=== PATIENT | male | born 1960 | race Caucasian/White ===

== ENCOUNTER 2018-06-08 01:04 | Outpatient (CLI) | payer BC, SELFPAY ==
--- NOTE | 2018-06-08 12:53 | DI.RAD_ITS ---
SYMPTOMS/DIAGNOSIS: CHRONIC PREDNISONE USE, Z79.52, LONG-TERM (CURRENT) USE OF SYSTEMIC STEROIDS DEXA SCAN: The scanogram is unremarkable. For the left hip, a T score of -0.9 and a Z score of -0.4 are consistent with osteopenia and an increased fracture risk. For the lumbar spine, a T score of -1.1 and a Z score of -0.4 are also consistent with osteopenia and an increased fracture risk. For the right forearm, a T score of -0.1 and a Z score of 0.6 are within the normal range.
== END 2018-06-08 01:24 ==
PROVIDERS: PCP Nurse Practitioner; Visit Provider Nurse Practitioner
DX: M85.88 Other specified disorders of bone density and structure, other site (principal); Z79.52 Long term (current) use of systemic steroids
CPT/HCPCS: 77080

== ENCOUNTER 2019-10-20 07:22 | Outpatient (CLI) | payer BC, SELFPAY ==
[2019-10-21 17:28] LABS: COVID-19 RT-PCR Result NEGATIVE (Negative)
== END 2019-10-20 07:42 ==
PROVIDERS: PCP Nurse Practitioner; Visit Provider Surgery
DX: Z01.818 Encounter for other preprocedural examination (principal)
CPT/HCPCS: U0003

== ENCOUNTER 2019-10-24 08:00 | Day surgery (SDC) | payer BC, SELFPAY ==
[2019-10-24] VITALS (10 sets, daily range): BP systolic 115–165; BP diastolic 69–90; PULSE 51–68; RESP 10–25; TEMP 36.1–36.6; O2SAT 95–98
--- NOTE | 2019-10-24 06:39 | ROE_ITS ---
Date of service: 10/24/19 Time of Service: 11:18 Operative Note Operative Note DATE OF PROCEDURE: 10/24/19 PRE-OP DIAGNOSIS: Right inguinal hernia and Umbilical hernia POST-OP DIAGNOSIS: other (Direct and indirect right inguinal hernia and umbilical hernia) PROCEDURE: 1. Right inguinal hernia repair with mesh 2. Umbilical hernia repair SURGEON: Allyson Henson ORNAMENTAL IRONWORKER HELPER: Beatrice Mota ANESTHESIA: GETA (ASA 2/ Valery Chan CRNA) and regional (TAP block and Bilateral rectus block) PATHOLOGY: none sent COMPLICATIONS: None Patient was transported to: PACU Patient's condition: stable Implants: 1. Ventralex ST Hernia Patch. REF [id number]/ LOT [id number]/ EXP 2021-05-18 2. PERFIX Light Plug. REF [id number]/ LOT [id number]/ EXP 2023-11-16 3. PerFix Light Plug. REF [id number]/ LOT [id number]/ 2023-08-16 Indications: 58 year old gentleman with COPD who comes into the office with a 7- month history of a small bulge in the right inguinal area. It is mildly tender uncomfortable. On exam he does have a small right inguinal hernia as well as an umbilical hernia that is partially reducible today in the office. It is not tender. Suspect a piece of omentum in the defect P\\ Right inguinal hernia repair with mesh and umbilical hernia repair TAP block and Bilateral rectus block Risks, benefits and complications have been reviewed. Complications include but are not limited to bleeding, pain, infection, injury to underlying structures like bowel and adverse reaction to the medication. Questions were entertained and answered to their satisfaction and they wished to proceed. No guarantees were given or implied. Procedure Description: After informed concent was obtained the patient was taken to the operating room and placed in a supine position. Monitors and SCDs were applied and a timeout was done. The patient's name, date of , procedure type, procedure site, allergies to medications, preoperative antibiotic, and DVT prophylaxis were all reviewed. Fire risk was assessed. Next anesthesia did a tap block on the right side under ultrasound guidance as well as a bilateral rectus block. Please see their separate dictation. Once anesthesia was done the abdomen was prepped and draped in a sterile surgical fashion. 1% lidocaine was injected into the dermis just under the umbilicus. An incision was made with a 10 blade under the umbilicus. Dissection was done with cautery through the subcutaneous tissues and through the umbilical stalk down to the fascia. The hernia defect was identified and measured 2 cm. The hernia sac was opened and The omentum was identified. I attempted to push the omentum back into the abdominal cavity without success. A portion of the omentum was resected using cautery. The rest of the omentum was then gently pushed back into the abdominal cavity. The peritoneum was swept for adhesions. No adhesions were noted. A 3.2 inch round mesh was then placed under the peritoneum and secured in 4 quarters with 2-0 Proline. Once the mesh was secured the tissues were irrigated with some normal saline. No bleeding was identified. The fascia was closed over the mesh with 0 vicryl running suture. 2-0 Vicryl was used to secure the umbilicus down to the fascia. The subcutaneous tissue was re-approximated with 3-0 vicryl. The dermis was re-approximated with a running 4-0 Vicryl. Next 1% lidocaine was injected into the dermis in the right lower quadrant. An incision was made with a 10 blade in the right lower quadrant. Dissection was done with cautery through the subcutaneous tissues and Ban's fascia down to the external oblique fascia. The external ring was identified and the external oblique fascia was opened sharply through the external ring. The cut fascia was grasped with hemostats and the cord structures were identified and a Martine drain was placed around them. The cremasteric muscle was dissected away from the cord structures using both cautery and blunt dissection. There was no mesh identified from a prior repair. A hernia sac was identified and removed from the cord structures using blunt dissection. The hernia sac was suture ligated and amputated. The remnant was pushed back into the peritoneum. A large direct hernia was also identified. A Extra large plug was sutured into place at the internal ring with 2-0 proline. The flat mesh was attached to the arcuate ligament using a 2-0 Prolene double armed suture. The mesh was secured laterally and medially with a 2-0 Prolene, with a running suture. The tails of the mesh were wrapped around the cord structures effectively cinching down the internal ring. Once the mesh was secured the tissues were irrigated with some normal saline. No bleeding was identified. I then inspected the mesh and found that there was an opening next to the arcuate ligament. A large plug was placed into that medial defect and secured with 2-0 proline. The external oblique fascia was re-approximated using 2-0 Vicryl running suture. The Ban's fascia was re-approximated using interrupted 3-0 Vicryl. The dermis was re-approximat ed with a running 4-0 Vicryl. The skin was cleaned and dried and skin affix was applied to both incisions. The patient was woken up and taken back to recovery in stable condition. There were no immediate complications. Sponge, instrument and needle counts were correct at the end of the case x2.
--- NOTE | 2019-10-24 06:42 | W.PM.DSUDISC ---
Discharge Plan Disposition Patient Disposition: HOME Condition: Good Discharge Details Reason For Visit: Right inguinal hernia and umbilical hernia Attending Provider: Allyson Henson Primary Care Provider: Alison Ornelas Home Meds and New Rx's Prescriptions: New ibuprofen 600 mg tablet 600 mg PO Q6H PRNQty: 60 RF: 0 acetaminophen [Tylenol] 325 mg tablet 650 mg PO Q6H PRN (Reason: pain) Qty: 30 RF: 0 Continued fexofenadine 180 mg tablet 180 mg PO DAILY PRN (Reason: environmental allergies) Qty: 30 RF: 12 prednisone 20 mg tablet See Rx Instructions PO DAILY RF: 0 (DME) Compact Compressor Nebulizer 1 EACH kit 1 ea Miscellaneous PRN Qty: 1 RF: 0 Dulera 200-5 mcg/actuation HFA aerosol inhaler 2 puff IH BID Qty: 1 RF: 12 ipratropium-albuterol 0.5 mg-3 mg(2.5 mg base)/3 mL solution for nebulization 3 ml IH QID PRN (Reason: copd) Qty: 120 RF: 12 albuterol sulfate 90 mcg/actuation HFA aerosol inhaler 2 puff IH Q4H PRN Qty: 1 RF: 12 fluticasone propionate 50 mcg/actuation spray,suspension 100 mcg NS DAILY Qty: 1 RF: 12 Discharge Instructions Instructions: Inguinal Hernia Repair (DC), Umbilical Hernia Repair (DC) Additional Instructions: Activity at Home after surgery: 1. Make sure you walk outside at least 4 times per day 2. You should be able to climb a flight of stairs 3. No driving while in pain or taking pain medications 4. No strenuous activity or heavy lifting for 4 weeks (open surgery) Diet, Nutrition, & wound healin. Avoid alcohol until after you are recovered from your surgery 2. Make sure to eat plenty of lean protein (meat, fish, eggs, cottage cheese, beans) 3. Eat a variety of fruits and vegetables. Eat plenty of high fiber foods to avoid constipation. 4. Drink plenty of liquids to stay hydrated and avoid constipation Pain Medications: 1. Tylenol 650 mg every 6 hours as needed and Ibuprofen 600 mg every 6 hours as needed. May alternate between the two medicines every 3 hours 2. If a narcotic has been prescribed take as directed only for breakthrough pain For Constipation: 1. Take Milk of Magnesia or MiraLax as needed for constipation Other: 1. You may shower daily. Do not scrub the incisions 2. Do not soak the incisions for 1 week 3. You may alternate ice and heat as needed for pain and swelling Wound Care: 1. Keep the incisions clean and dry Please call our office if you develop: 1. Fevers >101.5 2. Nausea or Vomiting 3. Worsening pain 4. Redness and thick discharge from the wounds If after hours please call the Hospital at and ask to speak to the on-call surgeon Referrals: Allyson Henson MD [ [facility] STAFF PHYSICIAN] - 11/06/19 10:30 am Activity:: No lifting >20 lb for 4 weeks Remove Dressings/Wound Care:: 24 hours Shower/Bathe:: 24 hours Diet:: As Tolerated Discharge Orders Discharge Orders: Discharge Order (Routine); Ordered 10/24/19 Ordered By: Allyson Henson
[2019-10-24] MEDS: Lactated Ringers 1,000 ML 80 ML IV (09:00)
[2019-10-24] MEDS: Hydrocortisone SOD SUC. 100 MG VIAL IV (10:00)
[2019-10-24] MEDS: ceFAZolin 2 GM/50 ML BAG IVPB (10:35)
[2019-10-24] MEDS: Bupivacaine LIPOSOME/PF 133 MG/10 ML VIAL IJ (10:44)
[2019-10-24] MEDS: Bupivacaine 0.25% Pres-Free 30 ML VIAL (10:44)
[2019-10-24] MEDS: Lidocaine 1% Multi-Dose 50 ML VIAL (10:49)
[2019-10-24] MEDS: fentaNYL 100 MCG/2 ML VIAL IVP ×2 (13:12→13:20)
[2019-10-24] MEDS: HYDROmorphone 2 MG/ML VIAL IVP (13:52)
[2019-10-24] MEDS: oxyCODONE 5 MG TAB PO (14:17)
== END 2019-10-24 15:37 | disposition home or self-care (01) ==
PROVIDERS: PCP Nurse Practitioner; Visit Provider Surgery
PROC: (CPT 49505; principal; 2019-10-24 09:45)
PROC: (CPT 49505; 2019-10-24 09:45)
DX: K40.90 Unilateral inguinal hernia, without obstruction or gangrene, not specified as recurrent (principal); K42.9 Umbilical hernia without obstruction or gangrene; G89.18 Other acute postprocedural pain; J44.9 Chronic obstructive pulmonary disease, unspecified
CPT/HCPCS: 49505; 49585; 76942; C1781; J0131; J0690; J1720; J1885; J2405; J3010

== ENCOUNTER 2021-01-28 05:16 | Observation (INO) | payer BC, SELFPAY ==
[2021-01-28] VITALS (40 sets, daily range): BP systolic 106–148; BP diastolic 64–89; PULSE 55–70; RESP 12–20; TEMP 36.2–36.9; O2SAT 90–99; BMI 28.0
--- NOTE | 2021-01-28 05:15 | DI.CT_ITS ---
Exam(s) CT ABDOMEN PELVIS W EXAM: CT ABDOMEN PELVIS W CLINICAL HISTORY: rlq inguinal hernia pain, r/o incarc/minerva. TECHNIQUE: Imaging Protocol: Axial computed tomography images with coronal and sagittal reformatted images were created and reviewed CONTRAST MATERIAL: Intravenous: Omnipaque 100cc Oral: None COMPARISON: No exams were available for comparison FINDINGS: VISUALIZED LUNG BASES: No nodules nor pleural effusions evident. ABDOMEN: There is no ascites. LIVER: There are no focal hepatic lesions evident . GALLBLADDER/BILIARY: No obvious gallbladder pathology. CBD is not dilated. PANCREAS: No evidence of pancreatic mass nor dilatation of the pancreatic duct. SPLEEN: Spleen is not enlarged. No obvious intrasplenic lesions. Splenic and portal veins are paten t. ADRENALS: There are no significant adrenal masses. KIDNEYS:No cysts evident. No solid renal masses. No calculi nor hydronephrosis.. ABDOMINAL AORTA: Abdominal aorta is not enlarged. LYMPH NODES:There is no retroperitoneal nor paraaortic adenopathy. ABDOMINAL WALL: There is a right-sided inguinal hernia which contains fluid but no bowel loops therei n. GI: There is no evidence of diverticular disease. However, in the central-slightly right of center p timothy just above the urinary bladder there is segmental circumferential thickening of a small bowel l oop with surrounding mesenteric edema. Consistent segmental enteritis, possibly ischemic or inflamma tory. This abnormal bowel loop measures approximately 8 cm length. PELVIS: GI: No evidence of appendicitis.No evidence of sigmoid diverticulitis. LYMPH NODES: There is no intrapelvic nor inguinal adenopathy. REPRODUCTIVE: Prostate mildly enlarged. Seminal vesicles unremarkable. URINARY BLADDER: No calculi nor obvious masses evident OSSEOUS: No significant osseous lesions. IMPRESSION: 1. The main finding here is abnormal segmental circumference thickening/edema of a small-bowel loop j ust above the urinary bladder, this measuring approximately 8 cm length and exhibiting surrounding me senteric edema. This is either related to short segmental enteritis due to ischemia or infection/inf lammatory. 2. There is an inguinal hernia on the right side which contains fluid within the inguinal canal but n o bowel loops therein. There is no bowel obstruction. RADIATION DOSE DELIVERED: 854.23mGy.cm Total DLP DATA REPOSITORY: All CT scans at this facility are submitted to the National Radiology Data Registry (NRDR) Dose Index Registry (DIR) with the [employer] (ACR). RADIATION OPTIMIZATION: All CT scans at this facility use at least one of these dose optimization te chniques: automated exposure control; mA and/or kV adjustment per patient size (includes targeted exa ms where dose is matched to clinical indication); or iterative reconstruction.
--- NOTE | 2021-01-28 05:28 | W.ED.GENAD ---
Discharge Plan Disposition Patient Disposition: [facility] INPATIENT Condition: Good Discharge Details Chief Complaint: Abd Prob Clinical Impression: Recurrent right inguinal hernia Admit Date/Time: 01/28/21 08:13 Admit Provider: Allyson Henson Attending Provider: Allyson Henson Primary Care Provider: Alison Ornelas ED Provider: Hilary Beckham Discharge Instructions Activity:: see above Equipment/Supplies:: No Equipment Needed Diet:: As Tolerated Discharge Orders Discharge Orders: Discharge Order (Routine); Ordered 01/29/21 Ordered By: Rafia Clayton Discharge Data Discharge Date/Time-TO BE ENTERED AT DEPARTURE: 01/28/21 09:05 Medical Decision Making <Justice Coulter DO - Last Filed: 01/28/21 07:48> 60-year-old male with a past medical history of an umbilical hernia that was surgically repaired, as well as a right-sided inguinal hernia that was surgically repaired in 2020 the month of October Dr. Henson. Patient presents today here for right groin/right lower quadrant pain. Patient states that starting at night p.o. past evening he developed notable right lower quadrant/right groin pain. He had a few episodes of vomiting but no diarrhea. Describes the pain as achy. He denies any epigastric pain or chest pain. He denies any significant genital pain or dysuria. He does admit to feeling a hard nodule for the last day or 2 with his right groin which he otherwise feels is new. He denies any significant straining. He denies any trauma. His last p.o. intake/meal per patient was at 3 PM. No other complaints today. Notable point factors. Exam demonstrates tenderness in the right lower quadrant, in conjunction with a tender nodular cylinder shaped the right groin at the inguinal canal, which may be scarring or atypical component of the hernia. There is also some swelling in the suprapubic region on the right-hand side suggestive of a mild fluid-filled hernia. This area is palpable and tender but does not appear to include physically at this time a large strangulated or incarcerated hernia. I do feel that CT imaging is indicated for further evaluation and characterization of the area. We will treat the patient's pain, rehydrate, monitor closely and reassess. Differential at this time includes appendicitis versus hernia with incarceration or strangulation. FINDINGS: Liver: Normal. No mass. Gallbladder and bile ducts: Normal. No calcified stones. No ductal dilation. Pancreas: Normal. No ductal dilation. Spleen: Normal. No splenomegaly. Adrenal glands: Normal. No mass. Kidneys and ureters: Normal. No hydronephrosis. Stomach and bowel: Segmental thickening of a loop of small bowel demonstrating a targetoid appearance in the upper pelvis. Mesenteric edema/congestion is noted. The findings are compatible with a short segmental enteritis, potentially ischemic, inflammatory or infectious. Appendix: No evidence of appendicitis. Intraperitoneal space: See Stomach and bowel finding. Vasculature: Unremarkable. No abdominal aortic aneurysm. Lymph nodes: Unremarkable. No enlarged lymph nodes. Urinary bladder: Unremarkable as visualized. Reproductive: Unremarkable as visualized. Bones/joints: Unremarkable. No acute fracture. Soft tissues: Patient status post ventral herniorrhaphy. Right-sided inguinal hernia contains a small amount of fluid but no bowel. IMPRESSION: 1. Segmental thickening of a loop of small bowel demonstrating a targetoid appearance in the upper pelvis. Mesenteric edema/congestion is noted. The findings are compatible with a short segmental enteritis, potentially ischemic, inflammatory or infectious. 2. Right-sided inguinal hernia contains a small amount of fluid but no bowel. Thank you for allowing us to participate in the care of your patient. Dictated and Authenticated by: Cruz Mancilla MD 01/28/2021 7:27 AM Eastern Time ([place] & [place]) <Hilary Beckham MD - Last Filed: 02/04/21 14:00> Patient signed out to me at time of shift change with discussion with surgery pending, discussed Pt with Dr. Henson of surgery, who will admit. HPI <Justice Coulter DO - Last Filed: 01/28/21 07:48> General Date/Time Provider Initiated Documentation: 01/28/21 05:17. HPI Narrative: 60-year-old male with a past medical history of an umbilical hernia that was surgically repaired, as well as a right-sided inguinal hernia that was surgically repaired in 2019 the month of October Dr[address] Henson. Patient presents today here for right groin/right lower quadrant pain. Patient states that starting at night p.o. past evening he developed notable right lower quadrant/right groin pain. He had a few episodes of vomiting but no diarrhea. Describes the pain as achy. He denies any epigastric pain or chest pain. He denies any significant genital pain or dysuria. He does admit to feeling a hard nodule for the last day or 2 with his right groin which he otherwise feels is new. He denies any significant straining. He denies any trauma. His last p.o. intake/meal per patient was at 3 PM. No other complaints today. Notable point factors. Related Data Home Medications Medication Instructions Recorded Confirmed fexofenadine 180 mg tablet 180 mg PO DAILY PRN #30 tab-cap 03/01/18 01/28/21 acetaminophen [Tylenol] 650 mg PO Q6H PRN #30 tab 10/24/19 01/28/21 ibuprofen 600 mg PO Q6H PRN #60 tab 10/24/19 01/28/21 nebulizer accessories #1 ea 07/28/20 11/27/20 nebulizers #1 kit 07/28/20 11/27/20 fluticasone 500 mcg-salmeterol 50 1 inh INHALATION BID #60 ea 07/29/20 01/28/21 mcg/dose blistr powdr for inhalation albuterol sulfate 90 mcg/actuation 2 puff IH Q4H PRN #1 unit 11/25/20 01/28/21 aerosol inhaler ipratropium 0.5 mg-albuterol 3 mg 3 ml IH QID PRN #120 vial 11/25/20 01/28/21 (2.5 mg base)/3 mL nebulization soln fluticasone propionate 50 2 spray INTRANASAL DAILY 90 Days 11/27/20 01/28/21 mcg/actuation nasal #48 g spray,suspension fluticasone propionate 50 2 spray INTRANASAL DAILY PRN ml 11/27/20 01/28/21 mcg/actuation nasal spray,suspension montelukast 10 mg tablet 10 mg PO DAILY #90 tab 11/27/20 01/28/21 tramadol 50 mg PO Q6H PRN #10 tab 01/29/21 Previous Rx's Medication Instructions Recorded fexofenadine 180 mg tablet 180 mg PO DAILY PRN #30 tab-cap 03/01/18 acetaminophen [Tylenol] 650 mg PO Q6H PRN #30 tab 10/24/19 ibuprofen 600 mg PO Q6H PRN #60 tab 10/24/19 nebulizer accessories #1 ea 07/28/20 nebulizers #1 kit 07/28/20 fluticasone 500 mcg-salmeterol 50 1 inh INHALATION BID #60 ea 07/29/20 mcg/dose blistr powdr for inhalation albuterol sulfate 90 mcg/actuation 2 puff IH Q4H PRN #1 unit 11/25/20 aerosol inhaler ipratropium 0.5 mg-albuterol 3 mg 3 ml IH QID PRN #120 vial 11/25/20 (2.5 mg base)/3 mL nebulization soln fluticasone propionate 50 2 spray INTRANASAL DAILY 90 Days 11/27/20 mcg/actuation nasal #48 g spray,suspension montelukast 10 mg tablet 10 mg PO DAILY #90 tab 11/27/20 tramadol 50 mg PO Q6H PRN #10 tab 01/29/21 Allergies Allergy/AdvReac Type Severity Reaction Status Date / Time No Known Drug Allergies Allergy Unknown Verified 01/28/21 05:29 Review of Systems <Justice Coulter DO - Last Filed: 01/28/21 07:48> All systems reviewed & are unremarkable except as noted in HPI and below PFSH <Justice Coulter DO - Last Filed: 01/28/21 07:48> Medical History Asthma Chronic obstructive lung disease (09/01/12) Colon cancer screening declined Elevated blood pressure reading (08/03/16) Failure to attend screening for abdominal aortic aneurysm (AAA) Lung cancer screening declined by patient Polyp, nasal Right inguinal hernia Umbilical hernia Unspecified asthma (03/20/86) SINCE 02/1986; DUST & FUMES & WEATHER CHANGE; MODERATE PERSISTENT; SEVERE COPD BUT RESPONSIVE; FEV1 1.88 Dr Hodges 09/2013 Surgical History History of tonsillectomy and adenoidectomy History of umbilical hernia repair (~10/24/19) Hx of inguinal hernia surgery Hx of nasal polypectomy S/P right inguinal hernia repair (~10/24/19) Social History Smoking/Tobacco Use Status: Former Tobacco Use Quit Date: 03/21/09 Smoking risk assessment performed?: Yes Alcohol Intake: current Alcohol Intake frequency: a few times a month Alcohol type: beer Substance use type: former substance user Details: alcohol: pt. reports he drinks on saturdays and usually three beers. last alcohol t-5. Marijuana is used with vaporizing, only on saturdays. Last marijuana t-5. Housing: apartment Current gender identity: male What type of physical activity do you participate in: none Seatbelt use: always Drive intox or ride w/intox drop hammer pile driver operator: No Water heater temp set <120 deg: Yes Working smoke detector in home: Yes Fire extinguisher in home: Yes Carbon monox detector in home: Yes Do you feel safe at home: Yes Do you feel safe in your relationship?: Yes Exam <Justice Coulter DO - Last Filed: 01/28/21 07:48> Narrative Exam Narrative: 1.Const: Well-nourished, Well-developed, appearing stated age 2.Eyes: PERRL, no conjunctival injection, and symmetrical lids. 3.ENT: Atraumatic external nose and ears. Moist MM. Neck: Symmetric, trachea midline, No thyromegaly. 4.CVS: +S1/S2, No murmurs or gallops. Peripheral pulses 2+ and equal in all extremities. Brisk capillary refill in all extremities. 5.RESP: Unlabored respiratory effort. Clear to auscultation bilaterally. No wheezes rales or rhonchi 6.GI: Soft, nondistended, testicles demonstrate no significant testicular or scrotal penile tenderness. Right groin demonstrates small swelling in the right suprapubic region, mild tenderness. Does not appear to be ventral hernia for the swelling. Proximal to this is a firm palpable somewhat linear cylindrical somewhat nodular mass. This may be. Scarring or a firm hernia. Difficult to tell if it on palpation. Is relatively small and isolated. Minimal pain in the right lower quadrant of the abdomen. 7.MSK: Normocephalic/Atraumatic, Extremities w/o deformity or ttp No cyanosis or clubbing, Normal movement of all extremities 8.Skin: Warm, Dry. No rashes or lesions. 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 Sensation grossly intact, no focal neurologic deficits. 10.Psych: (AAO) x3. Appropriate mood and affect Sign Out <Justice Coulter DO - Last Filed: 01/28/21 07:48> Sign Out Data: Sign Out Comment: Right lower quadrant abdominal pain, pending assessment/consultation from surgery. CT scan shows evidence of inflammation of the small bowel, mesenteric edema. Last updated by Justice Coulter DO at 01/28/21 07:49
[2021-01-28 05:41] LABS: Absolute Basophil Count 0.08 10^3/uL (0.0-0.2); Absolute Monocyte Count 1.25 10^3/uL (0.1-0.8); Basophils % 0.5; Eosinophils % 0.7; HGB 14.7 g/dL (13.5-17.5); Immature Grans % 1.2; Lactate 1.9 mmol/L (0.6-1.4); Lymphocytes % 14.6; MCH 31.3 pg (27.0-33.0); MCHC 32.7 % (32.0-36.0); MCV 95.7 fL (80-95); MPV 9.7 fL (8.0-11.0); Monocytes % 7.5; Neutrophils % 75.5; Nucleated RBC 0 %; Platelet Count 293 10^3/uL (130-400); RDW 13.4 % (11.8-14.1); RDW-SD 48.1 fL; WBC 16.73 10^3/uL (4.4-10.8)
[2021-01-28] MEDS: Normal Saline 1,000 ML 1000 ML IV (05:46)
[2021-01-28 05:57] LABS: Absolute Eosinophil Count 0.12 10^3/uL (0.0-0.7); Absolute Lymphocyte Count 2.44 10^3/uL (1.2-3.4); Absolute Neutrophil Count 12.63 10^3/uL (1.2-6.7)
[2021-01-28 06:00] LABS: Source Nasal/Nares
[2021-01-28 06:18] LABS: Albumin 4.1 g/dL (3.4-5.0); Alkaline Phosphatase 110 U/L (46-116); Anion Gap 8.1 mmol/L (3-11); BUN 12 mg/dL (7-18); Bilirubin, Total 0.4 mg/dL (0.2-1.0); CO2 30.9 mmol/L (21.0-32.0); Calcium 9.6 mg/dL (8.5-10.1); Chloride 102 mmol/L (98-107); Glucose 129 mg/dL (74-106); Potassium 4.4 mmol/L (3.5-5.1); Sodium 141 mmol/L (136-145); Total Protein 7.4 g/dL (6.4-8.2)
[2021-01-28 06:19] LABS: ALT 27 U/L (16-63); AST 14 U/L (15-37); Lipase 80 U/L (73-393)
[2021-01-28 06:51] LABS: COVID-19 PCR Negative (Negative)
[2021-01-28] MEDS: Omnipaque 350 MG/ML 100 ML BTL IJ (07:25)
[2021-01-28] MEDS: Normal Saline - Diluent 50 ML VIAL IV (07:26)
[2021-01-28] MEDS: Normal Saline Flush 10 ML SYR IVP ×7 (07:27→23:41)
--- NOTE | 2021-01-28 07:28 | DI.VRAD_ITS ---
PROCEDURE INFORMATION: Exam: CT Abdomen And Pelvis With Contrast Exam date and time: 01/28/2021 5:27 AM Age: 60 years old Clinical indication: Other: Rlq inguinal hernia pain, R/O incarc/minerva; Prior surgery; Surgery date: 6+ months; Surgery type: S/P 2 hernia repair TECHNIQUE: Imaging protocol: Computed tomography of the abdomen and pelvis with contrast. Radiation optimization: All CT scans at this facility use at least one of these dose optimization techniques: automated exposure control; mA and/or kV adjustment per patient size (includes targeted exams where dose is matched to clinical indication); or iterative reconstruction. Contrast material: OMNIPAQUE 350; Contrast volume: 100 ml; Contrast route: INTRAVENOUS (IV); COMPARISON: No relevant prior studies available. FINDINGS: Liver: Normal. No mass. Gallbladder and bile ducts: Normal. No calcified stones. No ductal dilation. Pancreas: Normal. No ductal dilation. Spleen: Normal. No splenomegaly. Adrenal glands: Normal. No mass. Kidneys and ureters: Normal. No hydronephrosis. Stomach and bowel: Segmental thickening of a loop of small bowel demonstrating a targetoid appearance in the upper pelvis. Mesenteric edema/congestion is noted. The findings are compatible with a short segmental enteritis, potentially ischemic, inflammatory or infectious. Appendix: No evidence of appendicitis. Intraperitoneal space: See Stomach and bowel finding. Vasculature: Unremarkable. No abdominal aortic aneurysm. Lymph nodes: Unremarkable. No enlarged lymph nodes. Urinary bladder: Unremarkable as visualized. Reproductive: Unremarkable as visualized. Bones/joints: Unremarkable. No acute fracture. Soft tissues: Patient status post ventral herniorrhaphy. Right-sided inguinal hernia contains a small amount of fluid but no bowel. IMPRESSION: 1. Segmental thickening of a loop of small bowel demonstrating a targetoid appearance in the upper pelvis. Mesenteric edema/congestion is noted. The findings are compatible with a short segmental enteritis, potentially ischemic, inflammatory or infectious. 2. Right-sided inguinal hernia contains a small amount of fluid but no bowel. Dictated and Authenticated by: Cruz Mancilla MD. Ordering:ARNOLD Rendon MD
[2021-01-28 08:11] LABS: Clarity Clear (Clear); Glucose Negative (Negative); Leukocyte Esterase Negative (Negative); Nitrite Negative (Negative); Specific Gravity 1.025 (1.005-1.025)
[2021-01-28 08:12] LABS: Bacteria Negative HPF (Negative); Bilirubin Negative (Negative); Blood Trace-intact (Negative); C & S Indicated? No; Casts Negative LPF (Negative); Crystals Negative HPF (Negative); Epithelial Cells Negative HPF (Negative); Ketones Trace mg/dL (Negative); Mucus Negative (Negative); Urobilinogen 0.2 EU/dL (Up TO 0.2); WBC 0-2 HPF (0-5)
--- NOTE | 2021-01-28 08:51 | HPE_ITS ---
Date of service: 01/28/21 Time of Service: 08:52 Assessment and Plan Assessment and plan (1) Abdominal pain: Status: Acute Assessment and plan: 60 y/o male presented to the ER via [place] secondary to severe abdominal pain. WBC and Lactate elevated. Patient's complaints of abdominal pain and right groin bulge have resolved since admission to the ER. Will admit to Med/surg for observation. Recheck labs around noon to trend values. DIET- NPO PAIN- Tylenol and Dilaudid ordered PRN IV Fluids Zosyn secondary to elevated WBC Activity as tolerated Discussed with the patient that he will be admitted to med/surg for further observation and continued evaluation. Questions were answered to patient's satisfaction. (2) Asthma: Status: Chronic (3) Chronic obstructive lung disease: Status: Chronic Qualifiers: COPD type: unspecified COPD Qualified Code(s): J44.9 - Chronic obstructive pulmonary disease, unspecified History of Present Illness History of Present Illness Chief Complaint: Abdominal Pain Narrative: 60 y/o male with a history of asthma, COPD, hearing loss presented to the ER with complaints of severe abdominal pain. The patient reports this abdominal pain began last night 01/27 at 9pm and continued through the evening. His abdominal pain is located across the waist band region, also of note he reports that he has a recurrence of his right inguinal hernia. S/P [facility] recurrence repair on 10/2019. This area was bulging, hard and painful. He states this has significantly improved since his arrival to the ER. Denies chest pain, palpitations, dyspnea or dyspnea with exertion. Denies personal or family history of adverse reactions to anesthesia. Denies any history of ND, stroke, seizures, bleeding or clotting disorders. Denies any history of chemotherapy or radiation. Patient reports occasional use of CBD and THC oil. Denies smoking tobacco or use of chewing tobacco or marijuana. Patient reports using ETOH on a monthly basis. Denies use of any other recreational or illegal drugs. [facility] Medical History Asthma Chronic obstructive lung disease (09/01/12) Colon cancer screening declined Elevated blood pressure reading (08/03/16) Failure to attend screening for abdominal aortic aneurysm (AAA) Lung cancer screening declined by patient Polyp, nasal Right inguinal hernia Umbilical hernia Unspecified asthma (03/20/86) SINCE 02/1986; DUST & FUMES & WEATHER CHANGE; MODERATE PERSISTENT; SEVERE COPD BUT RESPONSIVE; FEV1 1.88 Dr Hodges 09/2013 Surgical History History of tonsillectomy and adenoidectomy History of umbilical hernia repair (~10/24/19) Hx of inguinal hernia surgery Hx of nasal polypectomy S/P right inguinal hernia repair (~10/24/19) Social History Smoking/Tobacco Use Status: Former Tobacco Use Quit Date: 03/21/09 Smoking risk assessment performed?: Yes Alcohol Intake: current Alcohol Intake frequency: a few times a month Alcohol type: beer Substance use type: former substance user Details: alcohol: pt. reports he drinks on saturdays and usually three beers. last alcohol t-5. Marijuana is used with vaporizing, only on saturdays. Last marijuana t-5. Housing: apartment Current gender identity: male What type of physical activity do you participate in: none Seatbelt use: always Drive intox or ride w/intox garbage collector driver: No Water heater temp set <120 deg: Yes Working smoke detector in home: Yes Fire extinguisher in home: Yes Carbon monox detector in home: Yes Do you feel safe at home: Yes Do you feel safe in your relationship?: Yes Meds Allergies and Home Medications Allergies Allergy/AdvReac Type Severity Reaction Status Date / Time No Known Drug Allergies Allergy Unknown Verified 01/28/21 05:29 Home Medications Medication Instructions Recorded Confirmed Type fexofenadine 180 mg tablet 180 mg PO DAILY PRN #30 tab-cap 03/01/18 01/28/21 Rx acetaminophen [Tylenol] 650 mg PO Q6H PRN #30 tab 10/24/19 01/28/21 Rx ibuprofen 600 mg PO Q6H PRN #60 tab 10/24/19 01/28/21 Rx nebulizer accessories #1 ea 07/28/20 11/27/20 Rx nebulizers #1 kit 07/28/20 11/27/20 Rx fluticasone 500 mcg-salmeterol 50 1 inh INHALATION BID #60 ea 07/29/20 01/28/21 Rx mcg/dose blistr powdr for inhalation albuterol sulfate 90 mcg/actuation 2 puff IH Q4H PRN #1 unit 11/25/20 01/28/21 Rx aerosol inhaler ipratropium 0.5 mg-albuterol 3 mg 3 ml IH QID PRN #120 vial 11/25/20 01/28/21 Rx (2.5 mg base)/3 mL nebulization soln fluticasone propionate 50 2 spray INTRANASAL DAILY 90 Days 11/27/20 01/28/21 Rx mcg/actuation nasal #48 g spray,suspension fluticasone propionate 50 2 spray INTRANASAL DAILY PRN ml 11/27/20 01/28/21 History mcg/actuation nasal spray,suspension montelukast 10 mg tablet 10 mg PO DAILY #90 tab 11/27/20 01/28/21 Rx Exam Const General: cooperative, healthy appearing, comfortable and no acute distress Orientation: alert and oriented x3 Resp Effort & Inspection: normal respiratory effort, no audible wheezes and no cough GI Inspection: normal to inspection Palpation: soft, no guarding and nontender Other: Right groin region- No hernia noted on initial exam. No tenderness with palpation. (+) Recurrence of RIH. At this time the hernia appears to have reduced. Mild swelling in the Right groin area. No erythema. Results Labs Result diagrams: 01/28/21 05:35 01/28/21 05:35 Labs: Laboratory Results - last 24 hr 01/28/21 01/28/21 01/28/21 05:35 05:35 05:35 WBC 16.73 H RBC 4.70 Hgb 14.7 Hct 45.0 MCV 95.7 H MCH 31.3 MCHC 32.7 RDW 13.4 Plt Count 293 MPV 9.7 Immature Gran % 1.2 Neutrophils % 75.5 Lymphocytes % 14.6 Monocytes % 7.5 Eosinophils % 0.7 Basophils % 0.5 Nucleated RBC % 0 Absolute Neutrophils 12.63 H Absolute Lymphocytes 2.44 Absolute Monocytes 1.25 H Absolute Eosinophils 0.12 Absolute Basophils 0.08 VBG Lactate 1.9 H Sodium 141 Potassium 4.4 Chloride 102 Carbon Dioxide 30.9 Anion Gap 8.1 BUN 12 Creatinine 1.0 Estimated GFR/1.73 m2 >= 60.00 Glucose 129 H Calcium 9.6 Total Bilirubin 0.4 AST 14 L ALT 27 Alkaline Phosphatase 110 Total Protein 7.4 Albumin 4.1 Lipase 80 Urine Color Urine Clarity Urine pH Ur Specific [place] Urine Protein Urine Ketones Urine Blood Urine Nitrite Urine Bilirubin Urine Urobilinogen Ur Leukocyte Esterase Urine RBC Urine WBC Ur Epithelial Cells Urine Crystals Urine Bacteria Urine Casts Urine Mucus Ur Culture Indicated? Urine Glucose COVID-19 Source SARS-CoV-2 (PCR) 01/28/21 01/28/21 05:45 07:27 WBC RBC Hgb Hct MCV MCH MCHC RDW Plt Count MPV Immature Gran % Neutrophils % Lymphocytes % Monocytes % Eosinophils % Basophils % Nucleated RBC % Absolute Neutrophils Absolute Lymphocytes Absolute Monocytes Absolute Eosinophils Absolute Basophils VBG Lactate Sodium Potassium Chloride Carbon Dioxide Anion Gap BUN Creatinine Estimated GFR/1.73 m2 Glucose Calcium Total Bilirubin AST ALT Alkaline Phosphatase Total Protein Albumin Lipase Urine Color Yellow Urine Clarity Clear Urine pH 7.0 Ur Specific [place] 1.025 Urine Protein Negative Urine Ketones Trace Urine Blood Trace-intact H Urine Nitrite Negative Urine Bilirubin Negative Urine Urobilinogen 0.2 Ur Leukocyte Esterase Negative Urine RBC 3-5 H Urine WBC 0-2 Ur Epithelial Cells Negative Urine Crystals Negative Urine Bacteria Negative Urine Casts Negative Urine Mucus Negative Ur Culture Indicated? No Urine Glucose Negative COVID-19 Source Nasal/Nares SARS-CoV-2 (PCR) Negative Last Vital Signs Temp 36.9 C 01/28/21 05:19 Pulse 62 01/28/21 08:15 Resp 20 01/28/21 05:19 BP 141/83 H 01/28/21 08:15 Pulse Ox 93 01/28/21 08:20
[2021-01-28] MEDS: Lactated Ringers 1,000 ML 125 ML IV ×2 (09:23→15:00)
[2021-01-28] MEDS: ACETAMINOPHEN 1,000 MG/100 ML BTL 400 MG IVPB (09:24)
[2021-01-28] MEDS: Pantoprazole 40 MG VIAL IVP (09:26)
[2021-01-28] MEDS: Enoxaparin 40 MG/0.4 ML SYR SC (09:27)
[2021-01-28] MEDS: HYDROmorphone 2 MG/ML VIAL 1 MG IVP ×3 (10:41→23:37)
[2021-01-28] MEDS: Normal Saline 500 ML 30 ML IV (12:27)
[2021-01-28] MEDS: PIPERACILLIN/TAZO 3.375 GM in Normal Saline 50 ML IVPB ×3 (12:28→23:37)
[2021-01-28] MEDS: Ondansetron 4 MG/2 ML VIAL IVP (12:37)
[2021-01-28 12:41] LABS: Abs Immature Grans 0.17 10^3/uL (0.0-0.06); Absolute Eosinophil Count 0.29 10^3/uL (0.0-0.7); Absolute Lymphocyte Count 3.27 10^3/uL (1.2-3.4); Absolute Monocyte Count 1.13 10^3/uL (0.1-0.8); Absolute Neutrophil Count 8.81 10^3/uL (1.2-6.7); Basophils % 0.7; Eosinophils % 2.1; HCT 40.1 % (40.0-50.0); HGB 13.3 g/dL (13.5-17.5); Immature Grans % 1.2; Lymphocytes % 23.8; MCH 31.3 pg (27.0-33.0); MCHC 33.2 % (32.0-36.0); MCV 94.4 fL (80-95); MPV 9.6 fL (8.0-11.0); Monocytes % 8.2; Nucleated RBC 0 %; Platelet Count 279 10^3/uL (130-400); RBC 4.25 10^6/uL (4.36-5.78); RDW 13.6 % (11.8-14.1); RDW-SD 47.1 fL; WBC 13.76 10^3/uL (4.4-10.8)
--- NOTE | 2021-01-28 13:30 | W.ANESPRE ---
General Info Date of Service Date Performed: 01/28/21 Height: 5 ft 8 in Weight: 83.7 kg Body Mass Index (BMI): 28.0 Surgical Procedure: Operation Date: 01/28/21 14:10 Proposed Procedures Side Surgeon p Herniorrhaphy Inguinal/Femoral Right Allyson Henson MD Meds Allergies and Home Medications Allergies Allergy/AdvReac Type Severity Reaction Status Date / Time No Known Drug Allergies Allergy Unknown Verified 01/28/21 05:29 Home Medication Medication Instructions Recorded fexofenadine 180 mg tablet 180 mg PO DAILY PRN #30 tab-cap 03/01/18 acetaminophen [Tylenol] 650 mg PO Q6H PRN #30 tab 10/24/19 ibuprofen 600 mg PO Q6H PRN #60 tab 10/24/19 nebulizer accessories #1 ea 07/28/20 nebulizers #1 kit 07/28/20 fluticasone 500 mcg-salmeterol 50 1 inh INHALATION BID #60 ea 07/29/20 mcg/dose blistr powdr for inhalation albuterol sulfate 90 mcg/actuation 2 puff IH Q4H PRN #1 unit 11/25/20 aerosol inhaler ipratropium 0.5 mg-albuterol 3 mg 3 ml IH QID PRN #120 vial 11/25/20 (2.5 mg base)/3 mL nebulization soln fluticasone propionate 50 2 spray INTRANASAL DAILY 90 Days 11/27/20 mcg/actuation nasal #48 g spray,suspension fluticasone propionate 50 2 spray INTRANASAL DAILY PRN ml 11/27/20 mcg/actuation nasal spray,suspension montelukast 10 mg tablet 10 mg PO DAILY #90 tab 11/27/20 Current Visit Medications: Current Medications Generic Name Dose Route Start Last Admin Trade Name Freq PRN Reason Stop Dose Admin Enoxaparin Sodium 40 mg 01/28/21 10:00 01/28/21 09:27 Enoxaparin 40 Mg/0.4 Ml Syr SC 40 mg Q24H VELMA Administration Hydromorphone HCl 1 mg 01/28/21 08:44 01/28/21 10:41 Hydromorphone 2 Mg/Ml Vial IVP 1 mg Q2H PRN PRN Administration Pain Sodium Chloride 500 mls @ 0 mls/hr 01/28/21 08:13 01/28/21 12:27 Saline 500ml Bag IV 30 mls/hr PRN PRN Administration As Directed Ringer's Solution 1,000 mls @ 125 mls/hr 01/28/21 08:15 01/28/21 12:28 IV 0 mls/hr INFUSION VELMA Infusion Acetaminophen 1,000 mg in 100 mls @ 400 mls/hr 01/28/21 10:00 01/28/21 09:24 Ofirmev IVPB 400 mls/hr Q8H VELMA Administration Piperacillin Sod/Tazobactam 50 mls @ 100 mls/hr 01/28/21 12:00 01/28/21 12:28 Sod 3.375 gm/ Sodium Chloride IVPB 100 mls/hr Q6H VELMA Administration Protocol IV Miscellaneous Supplies 1 each 01/28/21 08:15 Iv Access IV DIRECTED VELMA Iohexol 100 ml 01/28/21 07:30 01/28/21 07:25 Omnipaque 350 Mg/Ml 100 Ml Btl IJ 02/27/21 23:59 100 ml DIRECTED VELMA Administration Ondansetron HCl 4 mg 01/28/21 08:13 01/28/21 12:37 Ondansetron 4 Mg/2 Ml Vial IVP 4 mg Q4H PRN PRN Administration Pantoprazole Sodium 40 mg 01/28/21 10:00 01/28/21 09:26 Pantoprazole 40 Mg Vial IVP 40 mg Q24H VELMA Administration Sodium Chloride 50 ml 01/28/21 07:30 01/28/21 07:26 Normal Saline - Diluent 50 Ml Vial IV 50 ml .FOR DI USE VELMA Administration Sodium Chloride 0 ml 01/28/21 07:27 01/28/21 12:37 Normal Saline Flush 10 Ml Syr IVP 10 ml PRN PRN Administration PFSH Active Problems Active Problems: Problem Status Onset Code Abdominal pain R10.9 Hearing loss H91.90 Nasal polyposis J33.9 Chronic obstructive lung disease 09/01/12 J44.9 Asthma Conductive hearing loss, 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 Polyp, nasal J33.9 Medical History Medical History Asthma Chronic obstructive lung disease (09/01/12) Colon cancer screening declined Elevated blood pressure reading (08/03/16) Failure to attend screening for abdominal aortic aneurysm (AAA) Lung cancer screening declined by patient Polyp, nasal Right inguinal hernia Umbilical hernia Unspecified asthma (03/20/86) SINCE 02/1986; DUST & FUMES & WEATHER CHANGE; MODERATE PERSISTENT; SEVERE COPD BUT RESPONSIVE; FEV1 1.88 Dr Hodges 09/2013 Surgical History Surgical History History of tonsillectomy and adenoidectomy History of umbilical hernia repair (~10/24/19) Hx of inguinal hernia surgery Hx of nasal polypectomy S/P right inguinal hernia repair (~10/24/19) Tobacco Smoking/Tobacco Use Status: Former Tobacco Use Alcohol Alcohol Intake: current Alcohol intake frequency: a few times a month Alcohol type: beer Substance Use Substance use type: former substance user Details: alcohol: pt. reports he drinks on saturdays and usually three beers. last alcohol t-5. Marijuana is used with vaporizing, only on saturdays. Last marijuana t-5. Vital Signs and Lab Results Vital Signs Most Recent Vital Signs in EMR: Most Recent Vital Signs Temp Pulse Resp BP Pulse Ox 36.7 C 65 18 129/81 97 01/28/21 09:46 01/28/21 09:46 01/28/21 09:46 01/28/21 09:46 01/28/21 09:46 Lab Results Result Diagrams: 01/28/21 12:33 01/28/21 05:35 Blood Type / Crossmatch: No Data to Display Complete Blood Count: White Blood Count 13.76 10^3/uL (4.4-10.8) H 01/28/21 12:33 01/28/21 Red Blood Count 4.25 10^6/uL (4.36-5.78) L 01/28/21 12:33 01/28/21 Hemoglobin 13.3 g/dL (13.5-17.5) L 01/28/21 12:33 01/28/21 Hematocrit 40.1 % (40.0-50.0) 01/28/21 12:33 01/28/21 Platelet Count 279 10^3/uL (130-400) 01/28/21 12:33 01/28/21 Venous Blood Lactate 1.0 mmol/L (0.6-1.4) 01/28/21 12:33 01/28/21 Complete Metabolic Panel: Sodium Level 141 mmol/L (136-145) 01/28/21 05:35 01/28/21 Potassium Level 4.4 mmol/L (3.5-5.1) 01/28/21 05:35 01/28/21 Chloride Level 102 mmol/L (98-107) 01/28/21 05:35 01/28/21 Carbon Dioxide Level 30.9 mmol/L (21.0-32.0) 01/28/21 05:35 01/28/21 Blood Urea Nitrogen 12 mg/dL (7-18) 01/28/21 05:35 01/28/21 Creatinine 1.0 mg/dL (0.70-1.30) 01/28/21 05:35 01/28/21 Estimated GFR/1.73 m2 >= 60.00 (mL/min/1.73m2) 01/28/21 05:35 01/28/21 Calcium Level 9.6 mg/dL (8.5-10.1) 01/28/21 05:35 01/28/21 Albumin 4.1 g/dL (3.4-5.0) 01/28/21 05:35 01/28/21 Glucose Level 129 mg/dL (74-106) H 01/28/21 05:35 01/28/21 Liver Function Panel: Alanine Aminotransferase (ALT/SGPT) 27 U/L (16-63) 01/28/21 05:35 01/28/21 Aspartate Amino Transf (AST/SGOT) 14 U/L (15-37) L 01/28/21 05:35 01/28/21 Coagulation Panel: No Data to Display Cardiac Panel: No Data to Display Arterial Blood Gas: No Data to Display Venous Blood Gas: No Data to Display Pancreas Panel: Lipase 80 U/L (73-393) 01/28/21 05:35 01/28/21 Thyroid Panel: No Data to Display Infectious Disease: Coronavirus (COVID-19)(PCR) Negative (Negative) 01/28/21 05:45 01/28/21 Coronavirus 2019 Source Nasal/Nares 01/28/21 05:45 01/28/21 Blood Cultures: No Data to Display Toxicology Panel: No Data to Display Anesthesia Assessment and Plan Anesthesia History Personal History: No History of Anesthesia Complications Family History: No Family History of Anesthesia Complications Exercise Tolerance Exercise Tolerance: Metabolic Equivalents>4 Pertinent Negatives Pertinent Negatives: No Symptoms of GERD (Symptoms earlier today, currently controlled on meds), No Major Cardiovascular Symptoms or Complaints, No Major Pulmonary Symptoms or Complaints (Albuterol inhaler daily) and No History of CVA/TIA Cardiac & Pulmonary Exam Cardiac Exam: Normal S1/S2 Heart Sounds Pulmonary Exam: Clear Bilateral Breath Sounds Implantable Cardiac Device Does patient have a Pacemaker or an ICD?: No Airway Exam Known Difficult Airway: No Mallampati Class: 2 Mouth Opening: Normal (> 3cm) Thyromental Distance: Greater than 3 cm Neck Range of Motion: Full ROM Neck Circumference: Normal Teeth Condition: Removable Dentures/Plates Lower and Edentulous ASA Classification ASA Score: ASA 2 Emergency Case?: No NPO Status NPO Status: NPO Clears >2 hours, Solids >8 hours Anesthesia Plan Resuscitation Status: Full Code Anesthesia Technique: General Anesthesia Airway Planned: Endotracheal Tube Pain Management: Surgeon and patient request nerve block Monitors Used: Standard Monitors Preoperative Comments:: 60 yo male for hernia repair. Came to ED via EMS with severe adnominal pain. Sig PMHx: Asthma/COPD (albut/ipatrop, recent pred taper 11/2020 40 mg for 5 days, then 20 mg for 7 days), nasal polyps, former smoker, occ EtOH, cannabis. Previous Anes: LMA 5,
[2021-01-28] MEDS: Bupivacaine LIPOSOME/PF 133 MG/10 ML VIAL IJ (14:46)
[2021-01-28] MEDS: Bupivacaine 0.25% Pres-Free 30 ML VIAL (14:46)
--- NOTE | 2021-01-28 15:01 | W.ANESNERVE ---
Nerve Block Single Injection Procedure Date and Time Date Performed: 01/28/21 Procedure Start: 14:32 Location Where Procedure Performed Procedure Location: Operating Room Procedure Stop: 14:40 Reason Performed: Postoperative Analgesia Requesting Provider: Allyson Henson Timeout Performed Timeout Performed: Yes Monitoring Used ECG, Blood Pressure, SpO2 and ETCO2 Sterility Sterility: Hand Hygiene, Surgical Cap, Surgical Mask, Sterile Gloves, Eye Protection and Chlorhexidine Sedation Given During Procedure Sedation Given (Indicate Dose Given): Other: Medication/Route/Dose:: patient under GA Patient Mental Status Patient Mental Status: Performed under general anesthesia Nerve Block 1st Nerve Block: Laterality: Right Block Type: TAP Unilateral Needle / Catheter Used: 100mm SonoPlex II Local Anesthetic Bolus (Indicate Dose Given): Bupivacaine 0.25% Dose:: 10 mL and Exparel Dose:: 10 mL Additives (Indicate Dose Given): None Ultrasound: Sterile probe cover and gel used Ultrasound Image Saved?: Yes Nerve Stimulator: Not Used Paresthesia: None Procedure Tolerated: No Complications Procedure Outcome: Successful Performed By: Pily Sauer Supervised By: Luigi Mcqueen
--- NOTE | 2021-01-28 15:36 | W.PM.OP ---
Date of service: 01/28/21 Time of Service: 15:36 Operative Note Operative Note DATE OF PROCEDURE: 01/28/21 PRE-OP DIAGNOSIS: recurrent right inguinal hernia POST-OP DIAGNOSIS: same PROCEDURE: Right inguinal hernia repair with mesh SURGEON: Allyson Henson SEISMIC PROSPECTING OBSERVER HELPER: Beatrice Mota ANESTHESIA TYPE: General LMA/ETT Refer to Anesthesia Record PATHOLOGY: none sent COMPLICATIONS: None Patient was transported to: PACU Patient's condition: stable Implants: BARD Mesh: LOT [id number] REF- [id number] EXP- Indications: Mr. Lovelace has a recurrence of his RIH. He states that he has noted a bulge for a few months. He was still working up to a few months ago and was doing a lot of heavy lifting. He tells me that he was not very good about not lifting right after surgery so he wonders whether he injured something. On examination his hernia was really hard to reduce and as he had already had it incarcerated once and is the reason for his admission I elected to try to fix it on this admission. I did talk to him about potentially having to remove the old mesh and the risk of injury to his blood vessels to the vas and the risk of chronic pain as this will be the third repair. I again discussed with him the importance of not lifting pulling or pushing anything more than 20 pounds for 6 weeks after the surgery to really allow things to heal and scar before he starts to put pressure on it. I answered his questions to his satisfaction and he wished to proceed. Findings: His mesh was balled up. It had completely ripped from his tissues. The vas was scarred into the mesh and as I was trying to pull the mesh away from the vas I did cut the vas. I did let the patient know after surgery that that happened. Procedure Description: After informed concent was obtained the patient was taken to the operating room and placed in a supine position. Monitors and SCDs were applied and a timeout was done. The patient's name, date of , procedure type, procedure site, allergies to medications, preoperative antibiotic, and DVT prophylaxis were all reviewed. Fire risk was assessed. Next anesthesia did a tap block on the right side under ultrasound guidance. Please see their separate dictation. Once anesthesia was done the abdomen was prepped and draped in a sterile surgical fashion. 0.5% Marcaine mixed with exparel was injected into the dermis in the right lower quadrant. An incision was made with a 10 blade in the right lower quadrant. Dissection was done with cautery through the subcutaneous tissues and Ban's fascia down to the external oblique fascia. The external ring was identified and the external oblique fascia was opened sharply through the external ring. The cut fascia was grasped with hemostats the cord structures were identified and a [place] drain was placed around them. The old mesh was identified and was completely off the fascia and in a ball. The mesh was dissected away from the vas and the vessels. The vas unfortunately was injured and severed. The vessels were intact. A large hernia sac was identified and removed from the cord structures. The hernia sac was suture ligated and amputated. The remnant was pushed back into the peritoneum. A flat piece of mesh was then attached to the lacunar ligament using a 2-0 Prolene double armed suture. The mesh was secured laterally and medially with a 2-0 Prolene, with a running suture. The tails of the mesh were wrapped around the cord structures effectively cinching down the internal ring. Once the mesh was secured the tissues were irrigated with some normal saline. No bleeding was identified. The external oblique fascia was reapproximated using 2-0 Vicryl running suture. The Ban's fascia was reapproximated using interrupted 3-0 Vicryl. The dermis was reapproximated with a running 4-0 Vicryl. The skin was cleaned and dried and skin affix was applied. The patient was woken up and taken back to recovery in stable condition. There were no immediate complications. Sponge, instrument and needle counts were correct at the end of the case x2.
--- NOTE | 2021-01-28 16:09 | W.ANESPOSTOP ---
Postoperative Evaluation Date, Time and Location Date Performed: 01/28/21 Time Performed: 16:09 Patient Location: PACU Vital Signs Most Recent Imported Vital Signs: Most Recent Vital Signs Temp Pulse Resp BP Pulse Ox 36.3 C L 64 13 106/68 97 01/28/21 15:55 01/28/21 15:55 01/28/21 15:55 01/28/21 15:55 01/28/21 15:55 Pain Score Most Recent Pain Score: Most Recent Pain Score Pain Level 0 01/28/21 15:55 Assessment Mental Status: Awake (Alert & Oriented to Patient Baseline) Airway and Respiratory Function: Patent airway with normal (patient baseline) respiratory exam Cardiovascular Function: Hemodynamically Stable Hydration Status: Adequately Hydrated Nausea & Vomiting: No Nausea or Vomiting Pain: Pt. Denies Any Pain Peripheral Nerve Block: Regional nerve block not resolved at time of post operative discharge
[2021-01-28] MEDS: Lactated Ringers 1,000 ML 80 ML IV (21:14)
[2021-01-28] MEDS: oxyCODONE 5 MG TAB PO (21:16)
[2021-01-28] MEDS: Acetaminophen 325 MG TAB 650 MG PO (21:17)
[2021-01-28] MEDS: Ibuprofen 600 MG TAB PO (23:36)
[2021-01-29] MEDS: PIPERACILLIN/TAZO 3.375 GM in Normal Saline 50 ML IVPB ×2 (05:55→11:24)
[2021-01-29] MEDS: Normal Saline Flush 10 ML SYR IVP (05:59)
[2021-01-29 07:01] LABS: Abs Immature Grans 0.12 10^3/uL (0.0-0.06); Absolute Lymphocyte Count 0.89 10^3/uL (1.2-3.4); Basophils % 0.1; Eosinophils % 0.1; HCT 36.5 % (40.0-50.0); HGB 12.1 g/dL (13.5-17.5); Immature Grans % 0.7; Lymphocytes % 5.5; MCH 31.7 pg (27.0-33.0); MCHC 33.2 % (32.0-36.0); MCV 95.5 fL (80-95); MPV 10.1 fL (8.0-11.0); Monocytes % 6.4; Neutrophils % 87.2; Nucleated RBC 0 %; Platelet Count 250 10^3/uL (130-400); RBC 3.82 10^6/uL (4.36-5.78); RDW 13.6 % (11.8-14.1); RDW-SD 48.5 fL; WBC 16.18 10^3/uL (4.4-10.8)
[2021-01-29 07:04] LABS: Absolute Basophil Count 0.02 10^3/uL (0.0-0.2); Absolute Eosinophil Count 0.02 10^3/uL (0.0-0.7); Absolute Monocyte Count 1.04 10^3/uL (0.1-0.8); Absolute Neutrophil Count 14.11 10^3/uL (1.2-6.7)
[2021-01-29] MEDS: oxyCODONE 5 MG TAB PO (07:24)
[2021-01-29 08:13] VITALS: BP 130/79; PULSE 60; RESP 18; TEMP 37.1; O2SAT 98
--- NOTE | 2021-01-29 08:22 | INITIAL_ITS ---
- If Service Date Differs Date of service: 01/29/21 Time of Service: 08:22 Care Management Initial Assess REASON FOR HOSPITALIZATION:: Enteritis PAST MEDICAL HISTORY/PAST SURGICAL HISTORY:: Asthma. Chronic obstructive lung disease (09/01/12). Colon cancer screening declined. Elevated blood pressure reading (08/03/16). Failure to attend screening for abdominal aortic aneurysm (AAA). Lung cancer screening declined by patient. Polyp, nasal. Right ing uinal hernia. Umbilical hernia. Unspecified asthma (03/20/86). SINCE 02/1986; DUST & FUMES & WEATHER CHANGE; MODERATE PERSISTENT; SEVERE COPD BUT RESPONSIVE; FEV1 1.88 Dr Hodges 09/2013. Surgical History . History of tonsillectomy and adenoidectomy. History of umbilical hernia repair (~10/24/19). Hx of inguinal hernia surgery. Hx of nasa l polypectomy. S/P right inguinal hernia repair (~10/24/19) PREVIOUS FUNCTIONAL STATUS/SOCIAL/FAMILY SUPPORTS:: Abdias resides in [facility] with his significant other, Char. He is independent at baseline in the community. CURRENT FUNCTIONAL STATUS:: Prepared for discharge, no needs identified at this time. ADVANCE DIRECTIVES:: None on file at [facility]. Has patient been provided with info about the portal/API?: Yes Did the patient sign up for the portal?: No CODE STATUS:: Full Code INSURANCE COVERAGE / FINANCIAL ISSUES:: BC/BS CURRENT HOME/COMMUNITY SERVICES/EQUIPMENT:: None, currently. PRIMARY CARE PHYSICIAN:: Alison Ornelas POTENTIAL DISCHARGE NEEDS:: Follow up appointment. PATIENT/FAMILY EDUCATION NEEDS:: Review discharge instructions, discuss Ask Me Three. ANTICIPATED BARRIERS TO DISCHARGE:: None identified at this time. TRANSPORTATION:: Via private vehicle with family. PLAN:: At this time, Abdias is tolerating post-op diet, he is encouraged to get out of bed and ambulate at this time. He will discharge home when ready per MD, to follow up with PCP and surgical services. He will transport via private vehicle with family.
--- NOTE | 2021-01-29 08:22 | W.PM.PROGNOT ---
Documented by User: CARLTON Bateman 01/29/21 08:26 Date of Service Date of service: 01/29/21 Time of Service: 08:23 Assessment and Plan Assessment and plan (1) Recurrent right inguinal hernia: Status: Acute Assessment and plan: POD #1 s/p repair with mesh of recurrent right inguinal hernia Patient's pain is well controlled. Will continue to monitor. Discussed trying to manage pain control via PO medications Tolerating post-op diet. Continue Pulmonary toilet No fevers or chills over night. Activity OOB and ambulation as much as possible. Possible D/C home later today (2) Abdominal pain: Status: Acute Subjective Subjective Interval history since last seen: Patient reports having mild pain at the surgical site. Tolerating soft diet at this time. He expresses that he is eager to eat breakfast this morning. Exam Const General: cooperative, healthy appearing and comfortable Orientation: alert and oriented x3 Resp Effort & Inspection: normal respiratory effort, no audible wheezes and no cough GI Palpation: soft, no guarding and tender Other: Right groin- Incision edges are well approximated with skin a fix in place. Moderate amount of ecchymosis around the surgical site with swelling. Tender to palpation. No induration or erythema. Objective Last Vital Signs Temp 37.1 C 01/29/21 08:13 Pulse 60 01/29/21 08:13 Resp 18 01/29/21 08:13 BP 130/79 01/29/21 08:13 Pulse Ox 98 01/29/21 08:13 Laboratory Results - last 24 hr 01/28/21 01/28/21 01/29/21 12:33 12:33 06:30 WBC 13.76 H 16.18 H RBC 4.25 L 3.82 L Hgb 13.3 L 12.1 L Hct 40.1 36.5 L MCV 94.4 95.5 H MCH 31.3 31.7 MCHC 33.2 33.2 RDW 13.6 13.6 Plt Count 279 250 MPV 9.6 10.1 Immature Gran % 1.2 0.7 Neutrophils % 64.0 87.2 Lymphocytes % 23.8 5.5 Monocytes % 8.2 6.4 Eosinophils % 2.1 0.1 Basophils % 0.7 0.1 Nucleated RBC % 0 0 Absolute Neutrophils 8.81 H 14.11 H Absolute Lymphocytes 3.27 0.89 L Absolute Monocytes 1.13 H 1.04 H Absolute Eosinophils 0.29 0.02 Absolute Basophils 0.10 0.02 VBG Lactate 1.0 Documented by User: Rafia Clayton DO 01/30/21 07:32 Assessment and Plan Assessment and plan (1) Recurrent right inguinal hernia: Status: Acute Assessment and plan: pt seen and examined. agree w/above. no lifting over 5#'s for 2-3 wks d/c home
[2021-01-29] MEDS: Enoxaparin 40 MG/0.4 ML SYR SC (09:49)
[2021-01-29] MEDS: Pantoprazole 40 MG VIAL IVP (09:49)
[2021-01-29] MEDS: Lactated Ringers 1,000 ML 80 ML IV (10:03)
--- NOTE | 2021-01-29 10:55 | DSE_ITS ---
Date of service: 01/29/21 Time of Service: 10:55 DS: Diagnosis Discharge Diagnosis (1) Recurrent right inguinal hernia: Status: Acute (2) Abdominal pain: Status: Acute Discharge Plan Disposition Patient Disposition: HOME Condition: Good Discharge Details Reason For Visit: hernia repair Admit Date/Time: 01/28/21 08:13 Admit Provider: Allyson Henson Attending Provider: Allyson Henson Primary Care Provider: Alison Ornelas Home Meds and New Rx's Prescriptions: New tramadol 50 mg tablet 50 mg PO Q6H PRNQty: 10 RF: 0 Continued fexofenadine 180 mg tablet 180 mg PO DAILY PRN (Reason: environmental allergies) Qty: 30 RF: 12 fluticasone propionate 50 mcg/actuation spray,suspension 2 spray intranasal DAILY PRNRF: 0 montelukast [Singulair] 10 mg tablet 10 mg PO DAILY Qty: 90 RF: 4 fluticasone propionate [Flonase Allergy Relief] 50 mcg/actuation spray,suspension 2 spray intranasal DAILY 90 Days Qty: 48 RF: 4 albuterol sulfate 90 mcg/actuation HFA aerosol inhaler 2 puff IH Q4H PRN Qty: 1 RF: 12 ipratropium-albuterol 0.5 mg-3 mg(2.5 mg base)/3 mL solution for nebulization 3 ml IH QID PRN (Reason: copd) Qty: 120 RF: 12 fluticasone propion-salmeterol [Advair Diskus] 500-50 mcg/dose blister with device 1 inh inhalation BID Qty: 60 RF: 6 (DME) Compact Compressor Nebulizer Misc 1 ea Miscellaneous PRN Qty: 1 RF: 0 (DME) nebulizer accessories Kit See Rx Instructions .ROUTE .MEDSUPPLY Qty: 1 RF: 12 ibuprofen 600 mg tablet 600 mg PO Q6H PRNQty: 60 RF: 0 acetaminophen [Tylenol] 325 mg tablet 650 mg PO Q6H PRN (Reason: pain) Qty: 30 RF: 0 Discharge Instructions Additional Instructions: Dr. Clayton HERNIA REPAIR ? POSTOPERATIVE INSTRUCTIONS Patients who have this type of surgery can usually be expected to return to work within two weeks and have minimal amounts of discomfort. ? ACTIVITY: The day of surgery should be spent resting. However, you can be up for short periods of time, I.E., going to the bathroom or kitchen. Avoid lifting or straining. On the day following surgery, you can be up and about as desired. ? LIFTING: Restrict your lifting to no more than five (5) pounds for the first week following surgery. For the second week after surgery, don?t lift more than ten pounds. We will decide when you are done with restrictions and when you can return to work, at your follow-up appointment. No sexual activity for two weeks. ? DIET: There are no dietary restrictions following surgery. However, you may want to start with small amounts of liquids to avoid nausea the day of surgery. ? INCISION CARE: You will notice purple skin glue closing the incision. Do not peel this off- it will wear off on its own. After 24 hours you may shower. The dressing may be replaced for comfort, but is not necessary. An ice bag may be applied to the incision for 72 hours following surgery. ? SIGNS OF INFECTION: It is not unusual to have some black and blue discoloration of the skin around the incision, but also scrotum and penis. It will slowly disappear. If you have any increased redness, drainage, fever (above 100 degrees), please contact your doctor for an examination. ? DISCOMFORT: You may expect to have some mild discomfort at the incision sight. If severe pain develops you should contact your doctor for further instructions. ? URINATION: Patients who have surgery occasionally have problems urinating. If you experience problems and are not able to urinate within 6 hours following your surgery, please call your doctor immediately or go to your nearest Emergency Room for evaluation. ? DRIVING: NO driving for three (3) days after surgery, or if you are still taking narcotic pain medication. ? MEDICATIONS: Alternate Tylenol 1000mg by mouth every 8 hours and Ibuprofen 600mg every 6 hours. Make sure you take ibuprofen with food and not on an empty stomach. Take the Tylenol and ibuprofen continuously for the first 72hrs- not just when you have pain. Use the tramadol for breakthrough pain. Use ICE! Twenty minutes on, and then off, continuously for the first 72hours. If you are taking narcotic pain medication, follow the instructions on the label and do not drive. Pain medications can make you very constipated. Make sure you are moving your bowels daily. If not, take Miralax, milk of magnesia or magnesium citrate. Anesthesia makes you very constipated. Take a dose of milk of magnesia the m orning after surgery. ? REPORT: Unusual swelling, severe pain, unresolved nausea, signs of infection, or difficulty in urination to your surgeon. Follow up in clinic with Dr. Henson in 2 weeks. [phone] 02/10 1:30pm Activity:: see above Equipment/Supplies:: No Equipment Needed Diet:: As Tolerated DS: Summary Time Spent with Patient providing and/or coordinating discharge services: Less than 30 minutes Status at Discharge Functional status at discharge: independent ambulation Overall status at discharge: patient is progressing back to baseline Mental Status: mental status grossly normal Speech and Movement: speech and movement normal Mood: congruent mood Affect: normal affect Exam Psych Mental Status: mental status grossly normal Speech and Movement: speech and movement normal Mood: congruent mood Affect: normal affect DS: Data Vitals/I&O Vitals and I&O: Vital Signs Temperature 37.1 C 01/29/21 08:13 Temperature Source Tympanic 01/29/21 08:13 Pulse 60 01/29/21 08:13 Pulse Rhythm Regular 01/29/21 09:10 Respiratory Rate 18 01/29/21 08:13 Respiratory Effort Non-Labored 01/29/21 09:10 Respiratory Depth Normal 01/29/21 09:10 Respiratory Pattern Normal 01/29/21 09:10 Blood Pressure 130/79 01/29/21 08:13 Blood Pressure Mean 98 01/28/21 08:15 Blood Pressure Position Supine 01/28/21 05:19 Pulse Oximetry 98 01/29/21 08:13 Respiratory End-tidal CO2 42 01/28/21 16:10 Oxygen Delivery Method Room Air 01/29/21 10:45 Oxygen Flow Rate 0 01/29/21 10:45 Pain Level 6 01/29/21 08:13 Comment 01/28/21 16:30 Intake & Output 01/28/21 01/28/21 01/29/21 11:59 23:59 11:59 Intake Total 1000 / 2964.916 1964.916 / 2964.916 1511.667 / 1511.667 Output Total 500 / 1275 775 / 1275 1050 / 1050 Balance 500 / 1577.446 6437.916 / 1689.916 461.667 / 461.667 Weight 83.7 kg 83.7 kg Intake: IV 1000 / 2964.916 1964.916 / 2964.916 1511.667 / 1511.667 Output: Urine 500 / 1275 775 / 1275 1050 / 1050 Other: Urine Color Yellow Yellow Yellow Urine Appearance Clear Clear Clear Urine Odor None Normal None Emesis Description None Voiding Methods Urinal Urinal Urinal Data Completed and Pending Labs on day of discharge: Labs from last 24 hours 01/29/21 01/28/21 01/28/21 06:30 12:33 12:33 WBC 16.18 H 13.76 H RBC 3.82 L 4.25 L Hgb 12.1 L 13.3 L Hct 36.5 L 40.1 MCV 95.5 H 94.4 MCH 31.7 31.3 MCHC 33.2 33.2 RDW 13.6 13.6 Plt Count 250 279 MPV 10.1 9.6 Immature Gran % 0.7 1.2 Neutrophils % 87.2 64.0 Lymphocytes % 5.5 23.8 Monocytes % 6.4 8.2 Eosinophils % 0.1 2.1 Basophils % 0.1 0.7 Nucleated RBC % 0 0 Absolute Neutrophils 14.11 H 8.81 H Absolute Lymphocytes 0.89 L 3.27 Absolute Monocytes 1.04 H 1.13 H Absolute Eosinophils 0.02 0.29 Absolute Basophils 0.02 0.10 VBG Lactate 1.0 PFSH Medical History Asthma Chronic obstructive lung disease (09/01/12) Colon cancer screening declined Elevated blood pressure reading (08/03/16) Failure to attend screening for abdominal aortic aneurysm (AAA) Lung cancer screening declined by patient Polyp, nasal Right inguinal hernia Umbilical hernia Unspecified asthma (03/20/86) SINCE 02/1986; DUST & FUMES & WEATHER CHANGE; MODERATE PERSISTENT; SEVERE LISW D BUT RESPONSIVE; FEV1 1.88 Dr Hodges 09/2013 Surgical History History of tonsillectomy and adenoidectomy History of umbilical hernia repair (~10/24/19) Hx of inguinal hernia surgery Hx of nasal polypectomy S/P right inguinal hernia repair (~10/24/19) Social History Smoking/Tobacco Use Status: Former Tobacco Use Quit Date: 03/21/09 Smoking risk assessment performed?: Yes Alcohol Intake: current Alcohol Intake frequency: a few times a month Alcohol type: beer Substance use type: former substance user Details: alcohol: pt. reports he drinks on saturdays and usually three beers. last alcohol t-5. Marijuana is used with vaporizing, only on saturdays. Last marijuana t-5. 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
[2021-01-29] MEDS: Milk of Magnesia 30 ML CUP PO (11:23)
--- NOTE | 2021-01-29 11:38 | CHAPLAIN ---
Abdias was up walking around his room when I visited this morning. He told me he is feeling much better since he left his home in the ambulance yesterday and having surgery. He thinks he'll be discharged later today. Abdias told me the he is a devout [employer].
== END 2021-01-29 12:44 | disposition home or self-care (01) ==
LOC: ER 08:49 → MS 09:08
PROVIDERS: Student in an Organized Health Care Education/Training Program; Admitting Provider Surgery; Emergency Provider Student in an Organized Health Care Education/Training Program; PCP Nurse Practitioner; Visit Provider Surgery
PROC: (CPT 49520; principal; 2021-01-28 14:00)
DX: K40.91 Unilateral inguinal hernia, without obstruction or gangrene, recurrent (principal); J44.9 Chronic obstructive pulmonary disease, unspecified; Z87.891 Personal history of nicotine dependence; Z20.822 Contact with and (suspected) exposure to COVID-19
CPT/HCPCS: 49520; 36415; 76942; 80053; 83690; 87635; 96361; 96374; 99285; J1650; 74177; 81003; 81015; 83605; 85025; C1781; G0378; J0131; J1100; J2250; J2370; J2405; J2543; J2704; J3490

== ENCOUNTER 2021-06-12 03:58 | Outpatient (CLI) | payer BC, SELFPAY ==
[2021-06-12] MEDS: Albuterol HFA 18 GM 200 PUFF INH IH (11:12)
[2021-06-12] MEDS: Inhaler, Assist Device 1 EACH MC (11:12)
== END 2021-06-12 03:59 | disposition home or self-care (01) ==
LOC: RT 03:58
PROVIDERS: PCP Nurse Practitioner; Visit Provider Nurse Practitioner
DX: J44.9 Chronic obstructive pulmonary disease, unspecified (principal); J45.909 Unspecified asthma, uncomplicated; Z87.891 Personal history of nicotine dependence
CPT/HCPCS: 94060; 94726; 94729

== ENCOUNTER 2022-01-07 19:04 | Emergency (ER) | payer BC, SELFPAY ==
--- NOTE | 2022-01-07 19:00 | RT.EKG_ITS ---
APPROVED REPORT Exam: Resting ECG Reason for Exam: chest pain Patient Location: E HR:77 bpm ECG Measurements Heart Rate 77 AXIS CO 165 P 25 QRSd 106 QRS -26 QT 394 T 47 QTc 446 Conclusion Sinus rhythm...normal P axis, V-rate 60- 99 Probable left atrial enlargement...P >50mS, <-0.10mV V1 Left ventricular hypertrophy...multiple LVH criteria
[2022-01-07 19:08] VITALS: BP 170/82; PULSE 80; RESP 18; TEMP 36.9; O2SAT 98
== END 2022-01-07 19:33 ==
LOC: ER 19:37
PROVIDERS: PCP Nurse Practitioner
DX: R07.9 Chest pain, unspecified (principal); Z53.21 Procedure and treatment not carried out due to patient leaving prior to being seen by health care provider
CPT/HCPCS: 93005; 93010

== ENCOUNTER 2022-09-16 01:25 | Outpatient (CLI) | payer BC, SELFPAY ==
--- NOTE | 2022-09-16 10:45 | DI.DEXA_ITS ---
Exam(s) XR DEXA BONE DENSITY W/WO INES EXAM: XR DEXA BONE DENSITY W/WO INES CLINICAL HISTORY: osteopenia, chronic Prednisone use, M85.80 TECHNIQUE: HoloBig Super Search Horizon C densitometer analysis of left hip, lumbar spine and right forearm. La teral survey image of the thoracic and lumbar spine. COMPARISON: DX XR DEXA BONE DENSITY W/WO INES from 06/08/[address] CHEST LUNG CANCER SCREEN from 09/04/2021 FINDINGS: Lateral view of the thoracic and lumbar spine shows no evidence of lumbar compression fractures. Mil d anterior wedging is noted in the mid thoracic region seen on prior chest CT. Bone mineral density measurements of the lumbar spine correspond to a total T-score of -0.7, in the normal range. This represents a 4.3 percent increase compared with 2019. Bone mineral density measurements of the left hip correspond to a total T-score of -0.9. The femora l neck T-score is -1.6, in the osteopenic range. This is not significantly changed from the prior e xam.. The right forearm bone mineral density measurements correspond to a T-score of the distal 3rd of 0, in the normal range, not significantly changed from prior.. IMPRESSION: Normal bone mineral density of the lumbar spine and forearm. Mild osteopenia of the hip.
== END 2022-09-16 01:45 ==
LOC: DI 01:25
PROVIDERS: PCP Nurse Practitioner; Visit Provider Nurse Practitioner
DX: M85.88 Other specified disorders of bone density and structure, other site (principal)
CPT/HCPCS: 77080

== ENCOUNTER 2022-11-11 04:14 | Outpatient (CLI) | payer BC, SELFPAY ==
[2022-11-11 10:25] LABS: HCT 45.4 % (40.0-50.0); HGB 15.2 g/dL (13.5-17.5); MCH 31.9 pg (27.0-33.0); MCHC 33.5 % (32.0-36.0); MCV 95 fL (80-95); MPV 9.5 fL (8.0-11.0); Platelet Count 271 10^3/uL (130-400); RBC 4.76 10^6/uL (4.36-5.78); RDW 13.1 % (11.8-14.1); RDW-SD 46.5 fL
[2022-11-11 11:15] LABS: ALT 25 U/L (16-63); AST 14 U/L (15-37); Albumin 3.8 g/dL (3.4-5.0); Alkaline Phosphatase 106 U/L (46-116); Anion Gap 7.5 mmol/L (3-11); BUN 12 mg/dL (7-18); Bilirubin, Total 0.5 mg/dL (0.2-1.0); CO2 29.5 mmol/L (21.0-32.0); CREATININE 1.1 mg/dL (0.70-1.30); Calcium 9.2 mg/dL (8.5-10.1); Calculated LDL 166 mg/dL (<100); Chloride 104 mmol/L (98-107); Cholesterol 235 mg/dL (<200); Estimated GFR 75.43 (mL/min/1.73m2); Glucose 86 mg/dL (74-106); HDL Cholesterol 37 mg/dL (40-60); Potassium 4.1 mmol/L (3.5-5.1); Sodium 141 mmol/L (136-145); Total Protein 7.3 g/dL (6.4-8.2); Triglyceride 160 mg/dL (<150)
== END 2022-11-11 04:15 | disposition home or self-care (01) ==
LOC: LBO 04:14
PROVIDERS: PCP Nurse Practitioner; Referring Provider Nurse Practitioner; Visit Provider Nurse Practitioner
DX: J44.9 Chronic obstructive pulmonary disease, unspecified (principal); Z13.220 Encounter for screening for lipoid disorders
CPT/HCPCS: 36415; 80053; 80061; 85027

== ENCOUNTER 2023-05-02 19:16 | Outpatient (CLI) | payer BC, SELFPAY ==
--- NOTE | 2023-05-02 13:39 | DI.RAD_ITS ---
Exam(s) XR CHEST 2V PA LATERAL EXAM: XR CHEST 2V PA LATERAL CLINICAL HISTORY: assess for possible pneumonia J06.9 URI J45.900 ASTHMA TECHNIQUE: 2D digital imaging was performed. COMPARISON: CT CT CHEST LUNG CANCER SCREEN from 09/24/2022 FINDINGS: HEART: Normal size. Aorta: Not dilated. PULMONARY VASCULATURE: Normal. LUNGS: Linear scarring at the lung bases. No evidence of pneumonia. Stable midthoracic compression fractures. PLEURAL SPACE: No pleural effusion or pneumothorax. BONE:Unremarkable for age. Soft tissues: Unremarkable. IMPRESSION: No acute abnormality. DATA REPOSITORY: RADIATION DOSE DELIVERED:
[2023-05-02 16:06] LABS: COVID-19 PCR Negative (Negative); Influenza A PCR Negative (Negative); Influenza B PCR Negative (Negative)
[2023-05-02 16:25] LABS: Source Nasopharynx
[2023-05-02 16:26] LABS: RSV PCR Positive (Negative)
== END 2023-05-02 19:17 | disposition home or self-care (01) ==
LOC: LBN 19:16
PROVIDERS: PCP Nurse Practitioner; Visit Provider Student in an Organized Health Care Education/Training Program
DX: J06.9 Acute upper respiratory infection, unspecified (principal); B97.4 Respiratory syncytial virus as the cause of diseases classified elsewhere; J45.901 Unspecified asthma with (acute) exacerbation
CPT/HCPCS: 87637; 71046

== ENCOUNTER → 2023-12-07 11:04 | Outpatient (BNVA) | payer MEDICARE, BC, SELFPAY | PROVIDERS: PCP Nurse Practitioner; Referring Provider Nurse Practitioner; Visit Provider Internal Medicine | DX: J44.9 Chronic obstructive pulmonary disease, unspecified (principal); J33.9 Nasal polyp, unspecified; Z87.891 Personal history of nicotine dependence; Z23 Encounter for immunization | CPT/HCPCS: 90732; 99215; G0009 ==

== ENCOUNTER 2023-12-30 02:15 | Outpatient (CLI) | payer MEDICARE, BC, SELFPAY ==
[2023-12-30 18:15] LABS: IgE 77 IU/mL (<158)
[2024-01-02 09:13] LABS: Alpha 1 Antitrypsin,Serum 138 mg/dL (90-200)
== END 2023-12-30 02:16 | disposition home or self-care (01) ==
LOC: LBO 02:16
PROVIDERS: PCP Nurse Practitioner; Visit Provider Internal Medicine
DX: J44.9 Chronic obstructive pulmonary disease, unspecified (principal); J33.9 Nasal polyp, unspecified
CPT/HCPCS: 36415; 82103; 82784; 82785; 82787

== ENCOUNTER 2024-01-15 11:38 | Emergency (ER) | payer MEDICARE, BC, SELFPAY ==
[2024-01-15] VITALS (13 sets, daily range): BP systolic 166–205; BP diastolic 77–106; PULSE 56–69; RESP 2–30; TEMP 36.6; O2SAT 92–99
--- NOTE | 2024-01-15 11:45 | RT.EKG_ITS ---
APPROVED REPORT Exam: Resting ECG Reason for Exam: chest pain Patient Location: E HR:58 bpm ECG Measurements Heart Rate 58 AXIS RI 185 P 71 QRSd 129 QRS 46 QT 407 T 72 QTc 401 Conclusion Sinus bradycardia...rate< 60 IVCD, consider LBBB...QRSd>120, notch/slur R I aVL V5-6 Sinus bradycardia at a rate of 58. Interventricular conduction delay. RI and QTc within normal limi ts. T wave flattening in aVL. Compared to prior dated 2 years ago T wave flattening in aVL similar. QRS is prolonged. No acute injury pattern.
--- NOTE | 2024-01-15 11:53 | ED.GENADUL_ITS ---
Discharge Plan Disposition Patient Disposition: Home Discharge Details Clinical Impression: Exacerbation of RAD (reactive airway disease) Primary Care Provider: Alison Ornelas ED Provider: José Luis Ojdea Home Meds and New Rx's Prescriptions: New doxycycline hyclate 100 mg capsule 100 mg PO BID Qty: 10 0RF prednisone 50 mg tablet 50 mg PO DAILY Qty: 4 0RF Rx Instructions: Please begin taking tomorrow as you have received steroids in the emergency department Continued fexofenadine 180 mg tablet 180 mg PO DAILY PRN (Reason: environmental allergies) Qty: 30 12RF Rx Instructions: as needed for seasonal allergies ipratropium bromide 21 mcg (0.03 %) spray,non-aerosol 2 spray intranasal BID Qty: 30 3RF Rx Instructions: administer into each nostril 2 sprays in AM, Tuesday, Tuesday and Fridays fluticasone propionate 50 mcg/actuation spray,suspension 2 spray intranasal .mwf Qty: 48 6RF prednisone 5 mg tablet 10 mg PO Q OTHER DAY MDD 10 Qty: 30 3RF Rx Instructions: 10 mg on Tuesday, Tuesday, Tuesday and Tuesday Trelegy Ellipta 200-62.5-25 mcg blister with device 1 inh inhalation DAILY Qty: 60 12RF (DME) nebulizer accessories Kit See Rx Instructions .ROUTE .MEDSUPPLY Qty: 1 12RF Rx Instructions: As directed montelukast 10 mg tablet See Rx Instructions .ROUTE .COMPLEX Qty: 90 3RF Dose Instruction: TAKE ONE TABLET BY MOUTH EVERY DAY Rx Instructions: TAKE ONE TABLET BY MOUTH EVERY DAY pneumococcal 23-ethel ps vaccine 25 mcg/0.5 mL syringe 0.5 ml IM ONCE Qty: 5 0RF Rx Instructions: as a single dose (DME) nebulizers [Compact Compressor Nebulizer] Misc 1 ea Miscellaneous PRN Qty: 1 0RF Rx Instructions: J44.9 to administer Duoneb goal: prevent hospitalization albuterol sulfate 90 mcg/actuation HFA aerosol inhaler 2 puff IH Q4H PRN Qty: 1 12RF ipratropium-albuterol 0.5 mg-3 mg(2.5 mg base)/3 mL solution for nebulization See Rx Instructions .ROUTE .COMPLEX Qty: 360 12RF Dose Instruction: INHALE ONE NEBULE DIRECTED FOUR TIMES A DAY NEEDED FOR COPD Rx Instructions: INHALE ONE NEBULE DIRECTED FOUR TIMES A DAY NEEDED FOR COPD ibuprofen 600 mg tablet 600 mg PO Q6H PRNQty: 60 0RF acetaminophen [Tylenol] 325 mg tablet 650 mg PO Q6H PRN (Reason: pain) Qty: 30 0RF Discharge Instructions Instructions: Asthma, Adult ED Additional Instructions: You are seen in the emergency department for your chest pain. Your blood work showed no sign of a heart attack. You are receiving steroids and doxycycline which you should take as directed. Please follow-up with your primary care provider. As we discussed, please return to the emergency department if you develop worsening shortness of breath recurrent chest pain or if you pass out. Discharge Data Discharge Date/Time-TO BE ENTERED AT DEPARTURE: 01/15/24 14:33 HPI General Date/Time Provider Initiated Documentation: 01/15/24 11:53 . HPI Narrative: MDM This is an overall very well-appearing normothermic and not tachycardic 63-year-old male with shortness of breath concerning for exacerbation of reactive airway disease for which he will receive nebulized ipratropium?albuterol. No significant lower extremity edema nor history of heart failure to suggest acute heart failure. I considered sepsis however the patient not hypotensive nor febrile and my suspicion was low for sepsis I did not treat with broad-spectrum antibiotics nor draw blood cultures. Patient is having chest pain so we will obtain troponins consistent with nonischemic ECG. He is not tachycardic not hypoxic so my suspicion is low for PE so I did not send a D-dimer. No tearing quality to suggest aortic dissection. Not hypotensive nor dialysis patient so my suspicion is low for tamponade. No trauma to suggest increased risk for pneumothorax. Patient has not been vomiting so my suspicion for esophageal rupture is low. Given prolonged expiratory phase we will treat with steroids and doxycycline. Will reassess following labs. 12:45 PM CBC with leukocytosis and macrocytosis but no anemia. No thrombocytopenia. Leukocytosis improved compared to prior. Venous blood gas lacks acidemia and hypercarbia. 1:07 PM Initial troponin reassuring 15 ng/L. Base metabolic panel no SANIA. No hyperglyc emia. No acute electrolyte abnormalities. 1:46 PM Repeat reassuring troponin. Will cancel third troponin. 345 Chest x-ray read as no acute cardiopulmonary process. I reassessed the patient. He continued to be saturating well on room air. His blood pressure had improved without intervention. I discussed that he should return if you develop worsening shortness of breath recurrent chest pain or any falls. Otherwise advised to follow-up with pulmonary later this week. He understood his return indications and was discharged with an empiric trial of expectant outpatient management. Chronic conditions affecting the care of the patient: Reactive airway disease History obtained from an outside historian: N/A External record review: N/A Diagnostic interpretations performed by me: Per my independent interpretation chest x-ray shows: Per my independent interpretation EKG shows: Sinus bradycardia at a rate of 58. Interventricular conduction delay. TX and QTc within normal limits. T wave flattening in aVL. Compared to prior dated 2 years ago T wave flattening in aVL similar. QRS is prolonged. No acute injury pattern. ]Medications: ipratropium?albuterol prednisone doxycycline Social determinants of health affecting disposition: N/A Management discussed with: N/A Treatment/interventions considered: N/A Response to therapies provided: Improved symptoms in the ED HPI This is a 63-year-old male history of reactive airway disease arrived emergency department via private vehicle in the setting of worsening shortness of breath and chest pain. Patient follows with pulmonology. He recently finished a prolonged taper of steroids. He reports that he began to feel short of breath over the past approximately 1 week. He took extra doses of prednisone to try to improve her symptoms. He does note that he is increased purulent sputum and increased production of sputum. He has never had a PE nor DVT. He denies any fevers and cough. He endorses a central and upper chest pain that is nonradiating. He does not complete dialysis. He denies any recent falls. He has not been vomiting. He denies routine tobacco, ethanol, and illicits. No dysuria nor frequency. No history of heart failure. Exam General: Well-appearing in no acute distress speaking in complete sentences. Head: Normocephalic, atraumatic. Eye: Extraocular eye movements intact. No conjunctival injection. No scleral icterus. Ear, nose, mouth, throat: Grossly normal inspection. Normal voice, handling secretions normally. Neck: Trachea midline. Cardiovascular: Well-perfused distal extremities. Regular rate and rhythm Respiratory: Nonlabored respiration. Mildly prolonged and expiratory wheezes. Breath sounds equal but diminished throughout. Gastrointestinal: Nondistended abdomen. Musculoskeletal: No significant lower extremity pitting edema. Moving all 4 extremities spontaneously. Skin: Normal for age and race, grossly normal temperature and turgor. No acute rash. Neurologic: Alert and appropriate, no apparent acute deficits. Psychiatric: Mood and manner are appropriate. Grooming and personal hygiene are appropriate. Related Data Home Medications ?Medication ?Instructions ?Recorded ?Confirmed fexofenadine 180 mg tablet 180 mg PO DAILY PRN environmental 03/01/18 01/15/24 allergies #30 tab-caps acetaminophen 325 mg tablet 650 mg (2 x 325 mg) PO Q6H PRN 10/24/19 01/15/24 (Tylenol) pain #30 tabs ibuprofen 600 mg tablet 600 mg PO Q6H PRN #60 tabs 10/24/19 01/15/24 nebulizers (Compact Compressor ##1 07/28/20 12/07/23 Nebulizer) albuterol sulfate 90 mcg/actuation 2 puff inhalation Q4H PRN #1 unit 05/18/23 01/15/24 aerosol inhaler ipratropium 0.5 mg-albuterol 3 mg See Rx Instructions .Route 09/26/23 01/15/24 (2.5 mg base)/3 mL nebulization .COMPLEX #360 mL soln fluticasone fur. 200 mcg-umeclid 1 inh inhalation DAILY #60 ea 12/07/23 01/15/24 62.5 mcg-vilant 25 mcg inhalat.powder (Trelegy Ellipta) fluticasone propionate 50 2 spray intranasal .mwf nasal 12/07/23 01/15/24 mcg/actuation nasal polyps #48 mL spray,suspension ipratropium bromide 21 mcg (0.03 2 spray intranasal BID #30 mL 12/07/23 01/15/24 %) nasal spray montelukast 10 mg tablet See Rx Instructions .Route 12/07/23 01/15/24 .COMPLEX #90 tabs nebulizer accessories #1 ea 12/07/23 12/07/23 pneumococcal 23-ethel ps vaccine 25 0.5 ml IM ONCE #5 mL 12/07/23 12/07/23 mcg/0.5 mL injection syringe prednisone 5 mg tablet 10 mg (2 x 5 mg) PO Q OTHER DAY 12/07/23 01/15/24 COPD #30 tabs doxycycline hyclate 100 mg capsule 100 mg PO BID #10 caps 01/15/24 prednisone 50 mg tablet 50 mg PO DAILY #4 tabs 01/15/24 Previous Rx's ?Medication ?Instructions ?Recorded fexofenadine 180 mg tablet 180 mg PO DAILY PRN environmental 03/01/18 allergies #30 tab-caps acetaminophen 325 mg tablet 650 mg (2 x 325 mg) PO Q6H PRN 10/24/19 (Tylenol) pain #30 tabs ibuprofen 600 mg tablet 600 mg PO Q6H PRN #60 tabs 10/24/19 nebulizers (Compact Compressor ##1 07/28/20 Nebulizer) albuterol sulfate 90 mcg/actuation 2 puff inhalation Q4H PRN #1 unit 05/18/23 aerosol inhaler ipratropium 0.5 mg-albuterol 3 mg See Rx Instructions .Route 09/26/23 (2.5 mg base)/3 mL nebulization .COMPLEX #360 mL soln fluticasone fur. 200 mcg-umeclid 1 inh inhalation DAILY #60 ea 12/07/23 62.5 mcg-vilant 25 mcg inhalat.powder (Trelegy Ellipta) fluticasone propionate 50 2 spray intranasal .mwf nasal 12/07/23 mcg/actuation nasal polyps #48 mL spray,suspension ipratropium bromide 21 mcg (0.03 2 spray intranasal BID #30 mL 12/07/23 %) nasal spray montelukast 10 mg tablet See Rx Instructions .Route 12/07/23 .COMPLEX #90 tabs nebulizer accessories #1 ea 12/07/23 pneumococcal 23-ethel ps vaccine 25 0.5 ml IM ONCE #5 mL 12/07/23 mcg/0.5 mL injection syringe prednisone 5 mg tablet 10 mg (2 x 5 mg) PO Q OTHER DAY 12/07/23 COPD #30 tabs doxycycline hyclate 100 mg capsule 100 mg PO BID #10 caps 01/15/24 prednisone 50 mg tablet 50 mg PO DAILY #4 tabs 01/15/24 Allergies Allergy/AdvReac Type Severity Reaction Status Date / Time No Known Drug Allergies Allergy Unknown NKDA Verified 01/15/24 11:53 General Stated Complaint: RespSymp ANTONIO: 3 Course Vital Signs Vital signs: Vital Signs Temperature 36.6 C 01/15/24 11:47 Pulse 69 01/15/24 11:47 Respiratory Rate 18 01/15/24 11:47 Blood Pressure 205/106 H 01/15/24 11:47 Pulse Oximetry 92 01/15/24 11:47 Temperature 36.6 C 01/15/24 11:47 Temperature Source Oral 01/15/24 11:47 Pulse 69 01/15/24 11:47 Respiratory Rate 18 01/15/24 11:47 Respiratory Effort Normal, Accessory Muscle Use, Incrsd Work of Breathing 01/15/24 11:49 Blood Pressure 205/106 H 01/15/24 11:47 Pulse Oximetry 92 01/15/24 11:47 Oxygen Delivery Method Room Air 01/15/24 11:47 Oxygen Flow Rate 0 01/15/24 11:47 End Tidal Co2 8 01/15/24 11:47 Medical Decision Making Quality:SDOH Health Related Social Needs: No Data to Display PFSH All Active Problems (Updated 01/15/24 @ 13:08 by José Luis Ojeda MD) Exacerbation of RAD (reactive airway disease) (Acute) Pulmonary nodule (Acute) Asthma exacerbation (Acute) URI (upper respiratory infection) (Acute) Screen for colon cancer (Acute) Hyperlipidemia (Acute) Osteopenia (Acute) Personal history of nicotine dependence (Acute) Asthma-COPD overlap syndrome (Acute) Abdominal pain (Acute) Hearing loss (Acute) Nasal polyposis (Acute) Chronic obstructive lung disease (Chronic 09/01/12) Asthma (Chronic) Conductive hearing loss, external ear (Acute) Polyp, nasal (Acute) Medical History Recurrent right inguinal hernia Right inguinal hernia Umbilical hernia Failure to attend screening for abdominal aortic aneurysm (AAA) Lung cancer screening declined by patient Colon cancer screening declined Unspecified asthma (03/20/86) SINCE 02/1986; DUST & FUMES & WEATHER CHANGE; MODERATE PERSISTENT; SEVERE COPD BUT RESPONSIVE; FEV1 1.88 Dr Hodges 09/2013 Elevated blood pressure reading (08/03/16) Surgical History S/P inguinal hernia repair using synthetic patch (~01/28/21) recurrent History of tonsillectomy and adenoidectomy History of umbilical hernia repair (~10/24/19) S/P right inguinal hernia repair (~10/24/19) Hx of nasal polypectomy Hx of inguinal hernia surgery Social History Smoking/Tobacco Use Status: Former Tobacco Use Quit Date: 03/21/09 Smoking risk assessment performed?: Yes Alcohol Intake: current Alcohol Intake frequency: a few times a month Alcohol type: beer Drug use: Occasionally Substance use type: former substance user and marijuana Housing: apartment Communication Needs: None Do you need help understanding health information?: Rarely 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
--- NOTE | 2024-01-15 12:00 | DI.RAD_ITS ---
Exam(s) XR PORTABLE CHEST AP EXAM: XR PORTABLE CHEST AP CLINICAL HISTORY: Shortness of breath. TECHNIQUE: 2D digital imaging was performed. COMPARISON: CR CHEST 2 VIEWS PA,LAT from 12/05/2013 CR XR CHEST 2V PA LATERAL from 05/02/2023 FINDINGS: Single AP portable view. Heart size is upper normal. The mediastinum is not widened. Right lung is clear. There is platelike atelectasis in left lung base, unchanged from 05/02/2023 no confluent infiltrates. No pleural effusions. No pulmonary edema. IMPRESSION: Platelike atelectasis or scarring in left lung base, unchanged from 05/02/2023. DATA REPOSITORY: RADIATION DOSE DELIVERED:
[2024-01-15 12:13] LABS: Abs Immature Grans 0.09 10^3/uL (0.0-0.06); Absolute Eosinophil Count 0.19 10^3/uL (0.0-0.7); Absolute Lymphocyte Count 3.05 10^3/uL (1.2-3.4); Absolute Neutrophil Count 7.91 10^3/uL (1.2-6.7); Basophils % 0.8 %; Eosinophils % 1.5 %; HCT 43.4 % (40.0-50.0); HGB 14.2 g/dL (13.5-17.5); Immature Grans % 0.7 %; Lymphocytes % 24.4 %; MCH 31.6 pg (27.0-33.0); MCHC 32.7 % (32.0-36.0); MCV 97 fL (80-95); MPV 9.4 fL (8.0-11.0); Monocytes % 9.4 %; Neutrophils % 63.2 %; Platelet Count 314 10^3/uL (130-400); RBC 4.49 10^6/uL (4.36-5.78); RDW 12.8 % (11.8-14.1); RDW-SD 45.6 fL; WBC 12.51 10^3/uL (4.4-10.8)
[2024-01-15] MEDS: Albuterol/Ipratropium 3 ML UPD VIAL UPD (12:16)
[2024-01-15] MEDS: predniSONE 20 MG TAB 60 MG PO (12:17)
[2024-01-15] MEDS: Doxycycline Hyclate 100 MG CAP PO (12:17)
[2024-01-15 12:23] LABS: pH (Venous) 7.35 (7.31-7.41)
[2024-01-15 12:29] LABS: BE (Venous) -1 mmol/L (-2-3); HCO3 (Venous) 25 mmol/L (23-28); O2 Sat (Venous) 67 %; TCO2 (Venous) 26 mmol/L (24-29); pCO2 (Venous) 45 mmHg (41-51); pO2 (Venous) 37 mmHg
[2024-01-15 12:36] LABS: Absolute Monocyte Count 1.18 10^3/uL (0.1-0.8)
[2024-01-15 13:03] LABS: Anion Gap 10.3 mmol/L (3-11); BUN 19 mg/dL (7-18); CO2 27.7 mmol/L (21.0-32.0); CREATININE 0.9 mg/dL (0.70-1.30); Calcium 9.4 mg/dL (8.5-10.1); Chloride 106 mmol/L (98-107); Estimated GFR 94.78 (mL/min/1.73m2); Glucose 91 mg/dL (74-106); Sodium 144 mmol/L (136-145); Troponin I 15 ng/L (<or=76)
[2024-01-15 13:39] LABS: Troponin I 17 ng/L (<or=76)
--- NOTE | 2024-01-15 14:10 | DI.VRAD_ITS ---
PROCEDURE INFORMATION: Exam: XR Chest Exam date and time: 01/15/2024 1:13 PM Age: 63 years old Clinical indication: Shortness of breath TECHNIQUE: Imaging protocol: Radiologic exam of the chest. Views: 1 view. COMPARISON: CR XR CHEST 2V PA LATERAL 05/02/2023 1:35 PM FINDINGS: Lungs: Unremarkable. No consolidation. Pleural spaces: Unremarkable. No pleural effusion. No pneumothorax. Heart/Mediastinum: Unremarkable. No cardiomegaly. Bones/joints: Unremarkable. IMPRESSION: No acute findings. Dictated and Authenticated by: Perla Hernandez MD. Ordering:KEV Ordonez MD
== END 2024-01-15 14:33 | disposition home or self-care (01) ==
PROVIDERS: Emergency Provider Emergency Medicine; PCP Nurse Practitioner
DX: J45.901 Unspecified asthma with (acute) exacerbation (principal); R07.9 Chest pain, unspecified; I45.9 Conduction disorder, unspecified; R94.31 Abnormal electrocardiogram [ECG] [EKG]
CPT/HCPCS: 80048; 82805; 93005; 94640; 99285; 71045; 84484; 85025; 93010; 99284; J7512; J7620

== ENCOUNTER → 2024-01-24 07:41 | Outpatient (BNVA) | payer MEDICARE, BC, SELFPAY | PROVIDERS: PCP Nurse Practitioner; Referring Provider Nurse Practitioner; Visit Provider Physician Assistant Surgical | DX: J44.9 Chronic obstructive pulmonary disease, unspecified (principal); Z87.891 Personal history of nicotine dependence; R91.1 Solitary pulmonary nodule; Z23 Encounter for immunization | CPT/HCPCS: 90661; 99214; G0008 ==

== ENCOUNTER → 2024-02-09 09:44 | Outpatient (BNVA) | payer MEDICARE, BC, SELFPAY | PROVIDERS: PCP Nurse Practitioner; Referring Provider Nurse Practitioner; Visit Provider Physician Assistant Surgical | DX: J44.9 Chronic obstructive pulmonary disease, unspecified (principal); R91.1 Solitary pulmonary nodule; Z87.891 Personal history of nicotine dependence | CPT/HCPCS: 99214 ==

== ENCOUNTER 2024-03-30 14:36 | Outpatient (CLI) | payer MEDICARE, BC, SELFPAY ==
--- NOTE | 2024-03-30 18:25 | DI.RAD_ITS ---
Exam(s) XR CHEST 2V PA LATERAL EXAM: XR CHEST 2V PA LATERAL CLINICAL HISTORY: SOB, Asthma-COPD overlap syndrome, R06.02, J44.9 TECHNIQUE: 2D digital imaging was performed of the chest. Two images were obtained. PA and lateral views were obtained. COMPARISON: CR XR CHEST 2V PA LATERAL from 05/02/2023 CR,XR XR PORTABLE CHEST AP from 01/15/2024 FINDINGS: MEDIASTINUM: Normal. HEART: Normal. PULMONARY VASCULATURE: Normal. LUNGS: The lungs are hyperinflated with flattened diaphragms suggesting underlying COPD. No focal co nsolidating infiltrates are present. PLEURAL SPACE: No pleural effusion or pneumothorax. BONE:Within normal limits for the patient's age. OTHER FINDINGS:Normal. IMPRESSION: No acute pulmonary findings. No focal consolidation. DATA REPOSITORY: RADIATION DOSE DELIVERED:
== END 2024-03-30 14:56 ==
LOC: DI 14:39
PROVIDERS: PCP Nurse Practitioner; Visit Provider Nurse Practitioner Family
DX: J44.89 Other specified chronic obstructive pulmonary disease
CPT/HCPCS: 71046

== ENCOUNTER 2024-03-30 14:37 | Outpatient (CLI) | payer MEDICARE, BC, SELFPAY ==
--- NOTE | 2024-03-30 14:30 | RT.EKG_ITS ---
APPROVED REPORT Exam: Resting ECG Reason for Exam: shortness of breath Patient Location: O HR:90 bpm ECG Measurements Heart Rate 90 AXIS ND [id number] P [id number] QRSd 188 QRS -29 QT 369 T -35 QTc 452 Conclusion Sinus rhythm Excessive artifact Otherwise unable to interpret
== END 2024-03-30 14:38 | disposition home or self-care (01) ==
LOC: DI.KIM 14:38
PROVIDERS: PCP Nurse Practitioner; Visit Provider Nurse Practitioner Family
DX: R06.02 Shortness of breath (principal)
CPT/HCPCS: 93010

== ENCOUNTER → 2024-04-25 09:53 | Outpatient (BNVA) | payer MEDICARE, BC, SELFPAY | PROVIDERS: PCP Nurse Practitioner; Referring Provider Nurse Practitioner; Visit Provider Physician Assistant Surgical | DX: J44.9 Chronic obstructive pulmonary disease, unspecified (principal); Z87.891 Personal history of nicotine dependence; R91.1 Solitary pulmonary nodule | CPT/HCPCS: 99214 ==

== ENCOUNTER → 2024-05-17 09:22 | Outpatient (BNVA) | payer MEDICARE, BC, SELFPAY | PROVIDERS: PCP Nurse Practitioner; Referring Provider Nurse Practitioner; Visit Provider Physician Assistant Surgical | DX: J44.9 Chronic obstructive pulmonary disease, unspecified (principal) | CPT/HCPCS: 94618; 99215 ==

== ENCOUNTER 2024-05-22 09:01 | Outpatient (RCR) | payer MEDICARE, BC, SELFPAY | END 2024-06-18 23:59 | disposition home or self-care (01) | LOC: PRC 09:01 | PROVIDERS: PCP Nurse Practitioner; Visit Provider Physician Assistant Surgical | DX: J44.89 Other specified chronic obstructive pulmonary disease (principal); Z51.89 Encounter for other specified aftercare | CPT/HCPCS: 94626 ==

== ENCOUNTER → 2024-05-30 08:56 | Outpatient (BNVA) | payer MEDICARE, BC, SELFPAY | PROVIDERS: PCP Nurse Practitioner; Referring Provider Nurse Practitioner; Visit Provider Physician Assistant Surgical | DX: J45.50 Severe persistent asthma, uncomplicated (principal) | CPT/HCPCS: 96372 ==

== ENCOUNTER → 2024-07-30 07:47 | Outpatient (BNVA) | payer MEDICARE, BC, SELFPAY | PROVIDERS: PCP Nurse Practitioner; Referring Provider Nurse Practitioner; Visit Provider Physician Assistant Surgical | DX: J44.9 Chronic obstructive pulmonary disease, unspecified (principal); Z87.891 Personal history of nicotine dependence; R91.1 Solitary pulmonary nodule | CPT/HCPCS: 99214 ==

== ENCOUNTER → 2024-10-02 14:17 | Outpatient (BNVA) | payer MEDICARE, BC, SELFPAY | PROVIDERS: PCP Nurse Practitioner; Referring Provider Nurse Practitioner; Visit Provider Physician Assistant Surgical | DX: J44.9 Chronic obstructive pulmonary disease, unspecified (principal); R91.1 Solitary pulmonary nodule; Z87.891 Personal history of nicotine dependence | CPT/HCPCS: 99214 ==

== ENCOUNTER 2024-12-03 00:41 | Outpatient (CLI) | payer MEDICARE, BC, SELFPAY ==
--- NOTE | 2024-12-03 15:50 | DI.CTLCSR_ITS ---
Exam(s) CT CHEST LUNG CANCER SCREEN EXAM: CT CHEST LUNG CANCER SCREEN CLINICAL HISTORY: Screening for lung cancer,former smoker,z87.891. TECHNIQUE: Imaging Protocol: Low Dose Technique CONTRAST MATERIAL: None COMPARISON: CT CT CHEST LUNG CANCER SCREEN from 09/24/2022 CR,XR XR PORTABLE CHEST AP from 01/15/2024 CR XR CHEST 2V PA LATERAL from 03/30/2024 FINDINGS: CHEST: LUNGS: There is a stable small 3 mm nodule in the lingular segment of the left lung again noted, unchanged from CT scan of September 2022. No new left lung nodules nor infiltrates nor pleural effusion.. In the opposite-right lung there are few tiny nodular densities which have not increased in size from September 2022. No new significant right lung findings. No pleural effusions. MEDIASTINUM: There is no obvious hilar nor mediastinal adenopathy. CARDIAC: Heart size is normal. There is no pericardial effusion.Caliber of the thoracic aorta is within normal limits. OTHER: No adrenal masses. OSSEOUS: No significant osseous lesions.No fractures.. IMPRESSION: 1. Continued stability of tiny benign-appearing lung nodules without significant change compared to prior CT scan of September 2022. 2. No new infiltrates, pleural effusions, nor intrathoracic adenopathy. 3. Lung RADS Cat 2 - Benign Appearance / Behavior: Nodules with a very low likelihood of becoming a clinically active cancer due to size or lack of growth Lung-RADS 1.0 CATEGORIES: Category 0 - Prior chest CT exam(s) being located for comparison. Category 1 - Annual screening in 12 months. No nodules or definitely benign nodules. Category 2 - Annual screening in 12 months. Benign appearance. Nodules with low likelihood of becoming active cancer. Category 3 - 6-month follow-up. Probably benign. Short-term follow-up suggested. Nodules with low likelihood of becoming active cancer. Category 4A - 3-month follow-up and CT/PET if >8 mm in size. Suspicious finding. Findings which require additional testing. Category 4B - Findings which require additional testing and tissue sampling. Category 4X - Category 3 or 4 nodules with additional features or imaging findings that increases the suspicion of malignancy. Modifier S- Potentially clinically significant findings (non lung cancer) RADIATION DOSE DELIVERED: 36.51mGy.cm Total DLP DATA REPOSITORY: All CT scans at this facility are submitted to the National Radiology Data Registry (NRDR) Dose Index Registry (DIR) with the [employer] (ACR). RADIATION OPTIMIZATION: All CT scans at this facility use at least one of these dose optimization techniques: automated exposure control; mA and/or kV adjustment per patient size (includes targeted exams where dose is matched to clinical indication); or iterative reconstruction.
== END 2024-12-03 01:01 ==
LOC: DI 00:42
PROVIDERS: PCP Nurse Practitioner; Visit Provider Internal Medicine
DX: Z12.2 Encounter for screening for malignant neoplasm of respiratory organs (principal); Z87.891 Personal history of nicotine dependence; R91.1 Solitary pulmonary nodule
CPT/HCPCS: 71271

== ENCOUNTER 2025-01-08 05:11 | Emergency (ER) | payer MEDICARE, BC, SELFPAY ==
[2025-01-08 05:08] VITALS: BP 162/88; PULSE 66; RESP 18; TEMP 36.4; O2SAT 93
--- NOTE | 2025-01-08 05:13 | W.ED.GENAD ---
Discharge Plan Disposition Patient Disposition: Home Condition: Improving Discharge Details Clinical Impression: Acute hip pain, bilateral Primary Care Provider: Alison Ornelas ED Provider: Rosalio Daly Home Meds and New Rx's Prescriptions: Continued fluticasone propionate 50 mcg/actuation spray,suspension 2 spray intranasal .mwf Qty: 48 6RF (DME) nebulizer accessories Kit See Rx Instructions .ROUTE .MEDSUPPLY Qty: 1 12RF Rx Instructions: As directed montelukast 10 mg tablet See Rx Instructions .ROUTE .COMPLEX Qty: 90 3RF Dose Instruction: TAKE ONE TABLET BY MOUTH EVERY DAY Rx Instructions: TAKE ONE TABLET BY MOUTH EVERY DAY Airsupra 90-80 mcg/actuation HFA aerosol inhaler 2 inh inhalation ONCE Qty: 10.7 12RF Rx Instructions: as a single dose; may repeat up to 6 doses per day (12 inhalations) ipratropium bromide 21 mcg (0.03 %) spray,non-aerosol 2 spray intranasal BID PRN Rx Instructions: administer into each nostril 2 sprays in AM, Tuesday, Tuesday and Fridays Dupixent Pen 300 mg/2 mL pen injector 300 mg subcut Q2W (DME) nebulizers [Compact Compressor Nebulizer] Misc 1 ea Miscellaneous PRN Qty: 1 0RF Rx Instructions: J44.9 to administer Duoneb goal: prevent hospitalization ipratropium-albuterol 0.5 mg-3 mg(2.5 mg base)/3 mL solution for nebulization See Rx Instructions .ROUTE .COMPLEX Qty: 360 12RF Dose Instruction: INHALE ONE NEBULE DIRECTED FOUR TIMES A DAY NEEDED FOR COPD Rx Instructions: INHALE ONE NEBULE DIRECTED FOUR TIMES A DAY NEEDED FOR COPD albuterol sulfate 90 mcg/actuation HFA aerosol inhaler 2 puff inhalation QID PRN (Reason: shortness of breath or wheezing) Qty: 8.5 6RF acetaminophen [Tylenol] 325 mg tablet 650 mg PO Q6H PRN (Reason: pain) Qty: 30 0RF Changed ibuprofen 600 mg tablet 600 mg PO Q8H PRNQty: 15 0RF Held tadalafil [Cialis] 10 mg tablet 10 mg PO Q OTHER DAY PRN (Reason: sexual activity) Qty: 30 6RF Hold Instructions: speak with PCP Rx Instructions: administer approximately 30min before sexual activity; do not use more than 1 dose per 24hrs Discharge Instructions Additional Instructions: You were seen in the ED for bilateral hip pain after use of Cialis. This very likely is an adverse reaction to the medication. Would not use Cialis again until you speak with PCP. Prescription for ibuprofen at pharmacy for pain which likely will improve over the next day or two. Return to ED for significantly worsening pain, fever, neurological change, other concerns. Referrals: [facility] [Provider Group] Discharge Data Discharge Date/Time-TO BE ENTERED AT DEPARTURE: 01/08/25 07:10 HPI General Mode of arrival: EMS. Date/Time Provider Initiated Documentation: 01/08/25 05:13. Limitations to Documentation: no limitations. Information obtained by: patient and RN notes reviewed. HPI Narrative: Patient presents to ED with severe bilateral hip/buttock pain. Patient denies any injury or fall. He took Cialis tonight and symptoms began shortly after and worsened. This is only the second time he has taken this medication. He denies priapism, testicular pain or urinary problems. Pain is constant, located in the lateral hip/thigh and buttock area. No back pain. No numbness, weakness, bladder/bowel problems and no abdominal pain. He tried Tylenol at home. Related Data Home Medications ?Medication ?Instructions ?Recorded ?Confirmed acetaminophen 325 mg tablet 650 mg (2 x 325 mg) PO Q6H PRN 10/24/19 01/08/25 (Tylenol) pain #30 tabs nebulizers (Compact Compressor ##1 07/28/20 01/08/25 Nebulizer) fluticasone propionate 50 2 spray intranasal .mwf nasal 12/07/23 01/08/25 mcg/actuation nasal polyps #48 mL spray,suspension montelukast 10 mg tablet See Rx Instructions .Route 12/07/23 01/08/25 .COMPLEX #90 tabs nebulizer accessories #1 ea 12/07/23 01/08/25 albuterol 90 mcg-budesonide 80 2 inh inhalation ONCE #10.7 grams 01/24/24 01/08/25 mcg/actuation HFA aerosol inhaler (Airsupra) ipratropium bromide 21 mcg (0.03 2 spray intranasal BID PRN 07/30/24 01/08/25 %) nasal spray ipratropium 0.5 mg-albuterol 3 mg See Rx Instructions .Route 10/03/24 01/08/25 (2.5 mg base)/3 mL nebulization .COMPLEX #360 mL soln albuterol sulfate 90 mcg/actuation 2 puff inhalation QID PRN 12/24/24 01/08/25 aerosol inhaler shortness of breath or wheezing #8.5 grams dupilumab 300 mg/2 mL subcutaneous 300 mg subcut Q2W 01/03/25 01/08/25 pen injector (Dupixent) tadalafil 10 mg tablet (Cialis) 10 mg PO Q OTHER DAY PRN sexual 01/03/25 01/08/25 Held on 01/08/25. activity #30 tabs Instructions: speak with PCP ibuprofen 600 mg tablet 600 mg PO Q8H PRN #15 tabs 01/08/25 Previous Rx's ?Medication ?Instructions ?Recorded acetaminophen 325 mg tablet 650 mg (2 x 325 mg) PO Q6H PRN 10/24/19 (Tylenol) pain #30 tabs nebulizers (Compact Compressor ##1 07/28/20 Nebulizer) fluticasone propionate 50 2 spray intranasal .mwf nasal 12/07/23 mcg/actuation nasal polyps #48 mL spray,suspension montelukast 10 mg tablet See Rx Instructions .Route 12/07/23 .COMPLEX #90 tabs nebulizer accessories #1 ea 12/07/23 albuterol 90 mcg-budesonide 80 2 inh inhalation ONCE #10.7 grams 01/24/24 mcg/actuation HFA aerosol inhaler (Airsupra) ipratropium 0.5 mg-albuterol 3 mg See Rx Instructions .Route 10/03/24 (2.5 mg base)/3 mL nebulization .COMPLEX #360 mL soln albuterol sulfate 90 mcg/actuation 2 puff inhalation QID PRN 12/24/24 aerosol inhaler shortness of breath or wheezing #8.5 grams tadalafil 10 mg tablet (Cialis) 10 mg PO Q OTHER DAY PRN sexual 01/03/25 Held on 01/08/25. activity #30 tabs Instructions: speak with PCP ibuprofen 600 mg tablet 600 mg PO Q8H PRN #15 tabs 01/08/25 Allergies Allergy/AdvReac Type Severity Reaction Status Date / Time No Known Drug Allergies Allergy Unknown NKDA Verified 01/08/25 05:16 General ANTONIO: 3 Exam Narrative Exam Narrative: Const: WDWN male in NAD but does appear uncomfortable. VS per triage. HEENT: NC/AT. Normal facial exam. Neck: Supple. Trachea midline. Lungs: Normal respiratory effort. GI: Soft/ND/NT. Back: No TLS tenderness. Neuro: A+O x 3. Normal speech, mentation, gait. Cranial nerves II - XII grossly intact. No gross motor or sensory deficit. Ext: No C/C/E. Normal ROM at the hips but with pain. No real tenderness. DP pulses are intact and strong. Medical Decision Making Patient presenting to ED with severe bilateral hip/buttock pain that started after taking Cialis. He is neuro in tact and pulses are intact. No abdominal complaint and no priapism, testicular pain. Likely pain related to vasodilatation of the musculature in the area which is a known side effect. Patient given IM Toradol with relief of pain and able to fall asleep. He was able to ambulate much better and without pain. No labs or imaging required given known side effect, timing and improvement. Hold use of Cialis until able to discuss with prescribing provider. Prescription for ibuprofen sent to pharmacy if needed over the next 24-48 hours. Return precautions provided. PFSH All Active Problems Acute hip pain, bilateral (Acute) Erectile dysfunction (Acute) COPD exacerbation (Acute) Pulmonary nodule (Acute) Asthma exacerbation (Acute) URI (upper respiratory infection) (Acute) Screen for colon cancer (Acute) Hyperlipidemia (Acute) Osteopenia (Acute) Personal history of nicotine dependence (Acute) Asthma-COPD overlap syndrome (Acute) Abdominal pain (Acute) Hearing loss (Acute) Nasal polyposis (Acute) Chronic obstructive lung disease (Chronic 09/01/12) Asthma (Chronic) Conductive hearing loss, external ear (Acute) Polyp, nasal (Acute) Medical History Recurrent right inguinal hernia Right inguinal hernia Umbilical hernia Failure to attend screening for abdominal aortic aneurysm (AAA) Lung cancer screening declined by patient Colon cancer screening declined Unspecified asthma (03/20/86) SINCE 02/1986; DUST & FUMES & WEATHER CHANGE; MODERATE PERSISTENT; SEVERE COPD BUT RESPONSIVE; FEV1 1.88 Dr Hodges 09/2013 Elevated blood pressure reading (08/03/16) Surgical History S/P inguinal hernia repair using synthetic patch (~01/28/21) recurrent History of tonsillectomy and adenoidectomy History of umbilical hernia repair (~10/24/19) S/P right inguinal hernia repair (~10/24/19) Hx of nasal polypectomy Hx of inguinal hernia surgery Social History Smoking/Tobacco Use Status: Former Tobacco Use Quit Date: 03/21/09 Smoking risk assessment performed?: Yes Alcohol Intake: current Alcohol Intake frequency: a few times a month Alcohol type: beer Drug use: Occasionally Substance use type: former substance user and marijuana Housing: apartment Communication Needs: None Do you need help understanding health information?: Rarely 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
[2025-01-08] MEDS: Ketorolac 30 MG/ML VIAL IM (05:34)
[2025-01-08 07:07] VITALS: BP 123/70; PULSE 71; RESP 10; O2SAT 97
== END 2025-01-08 07:10 | disposition home or self-care (01) ==
PROVIDERS: Emergency Provider Emergency Medicine; PCP Nurse Practitioner
DX: M25.551 Pain in right hip (principal); M25.552 Pain in left hip; M54.50 Low back pain, unspecified
CPT/HCPCS: 99283; 99284; 96372; J1885

== ENCOUNTER → 2025-01-09 10:38 | Outpatient (BNVA) | payer MEDICARE, BC, SELFPAY | PROVIDERS: PCP Nurse Practitioner; Referring Provider Nurse Practitioner; Visit Provider Physician Assistant Surgical | DX: J44.9 Chronic obstructive pulmonary disease, unspecified (principal); R91.1 Solitary pulmonary nodule; Z87.891 Personal history of nicotine dependence | CPT/HCPCS: 99214 ==